=== PATIENT | female | born 1990 | race Caucasian/White ===

== ENCOUNTER → 2022-04-04 | Outpatient (CLI) | payer BC, SELFPAY ==
--- NOTE | 2022-04-04 14:28 | RAD_ITS ---
STUDY: X-RAY - PELVIS REASON FOR EXAM: Female, 32 years old. Pain. TECHNIQUE: One view of the pelvis was obtained. COMPARISON: None. FINDINGS: There is a non-specific bowel gas pattern. IUD. Normal bilateral iliac wings, sacroiliac joints and visualized sacrum. Normal visualized bilateral superior and inferior pubic rami. Normal pubic symphysis. Normal ischial tuberosities. Normal visualized right femoral head. Normal right acetabulum. Normal right hip joint. Normal visualized left femoral head. Normal left acetabulum. Normal left hip joint. RAD/Pelvis 1 or 2 Views IMPRESSION: No abnormality of the visualized pelvis. No acute finding, evidence of erosive changes or fusion. Electronically Signed: Peterson Harris, at 9:46 EDT ,
[2022-04-04 17:43] LABS: Absolute Lymphocyte Count 1.79 X10^3/uL (0.83-4.51); Basophil# 0.05 X10^3/uL; Basophil% 0.6 % (0-1); Eosinophils% 1.2 % (0-5); Hematocrit 39.3 % (37-47); Hemoglobin 12.9 g/dL (12.0-15.0); Lymphocyte # 1.79 X10^3/ul (0.83-4.51); Lymphocyte % 21.1 % (19-41); Mean Corp Hgb Conc 32.8 g/dL (32-36); Mean Corpuscular Volume 94.5 fL (81-99); Mean Platelet Vol. 11.8 fl (6.2-12.0); Monocyte# 0.59 X10^3/uL; Monocyte% 6.9 % (0-10); NRBC Flagged by Analyzer 0 % (0-5); Neutrophil # 5.95 X10^3/uL (2.7-7.7); Platelet Count 259 K/mm3 (150-450); RBC Distribution Width CV 12.9 % (11.6-14.6); RBC Distribution Width SD 44.6 fl (35.1-43.9); Red Blood Count 4.16 M/mm3 (4.2-5.4); White Blood Count 8.5 K/mm3 (4.4-11.0)
[2022-04-04 18:06] LABS: AST(SGOT) 19 U/L (15-37); Alanine Aminotransfer ALT/SGPT 24 U/L (13-56); Albumin, Serum 3.8 g/dL (3.2-5.0); Alkaline Phosphatase 64 U/L (45-117); Anion Gap 10 (5-15); BUN 9 mg/dL (7-18); BUN/Creat Ratio 10.2 RATIO (10-20); Calcium,Total 8.7 mg/dL (8.5-10.1); Chloride 106 mmol/L (98-107); Creatinine, Serum 0.88 mg/dL (0.55-1.02); EST Glomerular Filtration Rate 79 mL/min (>60); Est Glom Filt Rate - Afr Amer 95 mL/min (>60); Globulin 3.8 g/dL (2.2-4.2); Glucose 95 mg/dL (74-106); Potassium 3.6 mmol/L (3.5-5.1); Protein, Total 7.6 g/dL (6.4-8.2); Rheumatoid Factor < 10.0 IU/mL (<15); Sodium Level 140 mmol/L (136-145)
[2022-04-05 08:57] LABS: Hepatitis B Surface Antibody Non-Reactive; Hepatitis B Surface Antigen Non-Reactive (Nonreactive); Hepatitis C Antibody Non-Reactive (Nonreactive)
[2022-04-15 10:28] LABS: CCP IgG Antibodies 6 units (0-19); HLA B27 Negative (.)
== END | disposition home or self-care (01) ==
PROVIDERS: PCP Student in an Organized Health Care Education/Training Program; Referring Provider Internal Medicine Rheumatology; Visit Provider Internal Medicine Rheumatology
DX: M06.4 Inflammatory polyarthropathy (principal); M24.80 Other specific joint derangements of unspecified joint, not elsewhere classified; M25.559 Pain in unspecified hip
CPT/HCPCS: 36415; 72170; 80053; 81374; 85025; 86200; 86431; 86706; 86803; 87340

== ENCOUNTER → 2022-08-04 | Outpatient (CLI) | payer BC, SELFPAY ==
[2022-08-04 17:37] LABS: Absolute Lymphocyte Count 1.37 X10^3/uL (0.83-4.51); Basophil# 0.03 X10^3/uL; Basophil% 0.6 % (0-1); Eosinophil# 0.13 X10^3/uL; Eosinophils% 2.6 % (0-5); Hematocrit 39.4 % (37-47); Hemoglobin 13.5 g/dL (12.0-15.0); Lymphocyte # 1.37 X10^3/ul (0.83-4.51); Lymphocyte % 27.7 % (19-41); Mean Corp Hgb Conc 34.3 g/dL (32-36); Mean Corpuscular Hgb 31.6 pg (27.0-32.0); Mean Corpuscular Volume 92.3 fL (81-99); Mean Platelet Vol. 11.6 fl (6.2-12.0); Monocyte% 8.1 % (0-10); NRBC Flagged by Analyzer 0 % (0-5); Neutrophil % 60.8 % (47-70); Platelet Count 223 K/mm3 (150-450); RBC Distribution Width CV 13.4 % (11.6-14.6); RBC Distribution Width SD 45.4 fl (35.1-43.9); Red Blood Count 4.27 M/mm3 (4.2-5.4); White Blood Count 4.9 K/mm3 (4.4-11.0)
[2022-08-04 18:12] LABS: ALB/GLOB Ratio 1.1 RATIO (0.9-2.4); AST(SGOT) 13 U/L (15-37); Alanine Aminotransfer ALT/SGPT 16 U/L (13-56); Albumin, Serum 3.6 g/dL (3.2-5.0); Alkaline Phosphatase 43 U/L (45-117); Anion Gap 9 (5-15); BUN 10 mg/dL (7-18); BUN/Creat Ratio 11.9 RATIO (10-20); Calcium,Total 8.8 mg/dL (8.5-10.1); Chloride 109 mmol/L (98-107); Creatinine, Serum 0.84 mg/dL (0.55-1.02); EST Glomerular Filtration Rate 83 mL/min (>60); Est Glom Filt Rate - Afr Amer 100 mL/min (>60); Globulin 3.3 g/dL (2.2-4.2); Glucose 95 mg/dL (74-106); Potassium 3.9 mmol/L (3.5-5.1); Protein, Total 6.9 g/dL (6.4-8.2); Sodium Level 142 mmol/L (136-145)
== END | disposition home or self-care (01) ==
LOC: MTLAB 16:14
PROVIDERS: PCP Student in an Organized Health Care Education/Training Program; Referring Provider Internal Medicine Rheumatology; Visit Provider Internal Medicine Rheumatology
DX: M06.4 Inflammatory polyarthropathy (principal); Z79.899 Other long term (current) drug therapy
CPT/HCPCS: 36415; 80053; 85025

== ENCOUNTER → 2022-11-22 | Outpatient (CLI) | payer BC, SELFPAY ==
[2022-11-22 18:20] LABS: Absolute Lymphocyte Count 1.82 X10^3/uL (0.83-4.51); Basophil# 0.04 X10^3/uL; Basophil% 0.6 % (0-1); Eosinophil# 0.06 X10^3/uL; Eosinophils% 0.9 % (0-5); Hematocrit 39.7 % (37-47); Lymphocyte # 1.82 X10^3/ul (0.83-4.51); Lymphocyte % 28.3 % (19-41); Mean Corp Hgb Conc 32.7 g/dL (32-36); Mean Corpuscular Hgb 30.7 pg (27.0-32.0); Mean Corpuscular Volume 93.9 fL (81-99); Mean Platelet Vol. 11.6 fl (6.2-12.0); Monocyte# 0.45 X10^3/uL; NRBC Flagged by Analyzer 0 % (0-5); Neutrophil # 4.03 X10^3/uL (2.7-7.7); Neutrophil % 62.9 % (47-70); Platelet Count 303 K/mm3 (150-450); RBC Distribution Width CV 12.4 % (11.6-14.6); Red Blood Count 4.23 M/mm3 (4.2-5.4); White Blood Count 6.4 K/mm3 (4.4-11.0)
[2022-11-22 18:43] LABS: AST(SGOT) 12 U/L (15-37); Alanine Aminotransfer ALT/SGPT 27 U/L (13-56); Albumin, Serum 3.7 g/dL (3.2-5.0); Alkaline Phosphatase 55 U/L (45-117); Anion Gap 6 (5-15); BUN 10 mg/dL (7-18); BUN/Creat Ratio 11.6 RATIO (10-20); Chloride 107 mmol/L (98-107); Creatinine, Serum 0.86 mg/dL (0.55-1.02); EST Glomerular Filtration Rate 80 mL/min (>60); Est Glom Filt Rate - Afr Amer 97 mL/min (>60); Globulin 3.6 g/dL (2.2-4.2); Glucose 101 mg/dL (74-106); Potassium 3.7 mmol/L (3.5-5.1); Protein, Total 7.3 g/dL (6.4-8.2); Sodium Level 139 mmol/L (136-145)
[2022-11-27 14:08] LABS: Vitamin D 1,25-Dihydroxy 33.3 pg/mL (24.8-81.5)
== END | disposition home or self-care (01) ==
LOC: MTLAB 15:36
PROVIDERS: PCP Student in an Organized Health Care Education/Training Program; Referring Provider Internal Medicine Rheumatology; Visit Provider Internal Medicine Rheumatology
DX: M06.4 Inflammatory polyarthropathy (principal); Z79.899 Other long term (current) drug therapy; R53.83 Other fatigue
CPT/HCPCS: 36415; 80053; 82652; 85025

== ENCOUNTER → 2023-03-06 | Outpatient (CLI) | payer BC, SELFPAY ==
[2023-03-06 17:35] LABS: Absolute Lymphocyte Count 1.43 X10^3/uL (0.83-4.51); Absolute Neutrophil Count 2.7 X10^3/uL (2.0-7.7); Basophil# 0.03 X10^3/uL; Basophil% 0.6 % (0-1); Eosinophils% 2.1 % (0-5); Hematocrit 39.2 % (37-47); Lymphocyte # 1.43 X10^3/ul (0.83-4.51); Lymphocyte % 30.6 % (19-41); Mean Corp Hgb Conc 33.2 g/dL (32-36); Mean Corpuscular Hgb 31.3 pg (27.0-32.0); Mean Corpuscular Volume 94.5 fL (81-99); Mean Platelet Vol. 11.4 fl (6.2-12.0); Monocyte# 0.46 X10^3/uL; Monocyte% 9.8 % (0-10); NRBC Flagged by Analyzer 0 % (0-5); Neutrophil # 2.65 X10^3/uL (2.7-7.7); Neutrophil % 56.7 % (47-70); Platelet Count 233 K/mm3 (150-450); RBC Distribution Width CV 12.7 % (11.6-14.6); RBC Distribution Width SD 44.1 fl (35.1-43.9); Red Blood Count 4.15 M/mm3 (4.2-5.4); White Blood Count 4.7 K/mm3 (4.4-11.0)
[2023-03-06 17:45] LABS: ALB/GLOB Ratio 1.1 RATIO (0.9-2.4); AST(SGOT) 13 U/L (15-37); Alanine Aminotransfer ALT/SGPT 21 U/L (13-56); Albumin, Serum 3.6 g/dL (3.2-5.0); Alkaline Phosphatase 45 U/L (45-117); Anion Gap 5 (5-15); BUN 9 mg/dL (7-18); BUN/Creat Ratio 9.6 RATIO (10-20); Calcium,Total 8.5 mg/dL (8.5-10.1); Chloride 107 mmol/L (98-107); Creatinine, Serum 0.94 mg/dL (0.55-1.02); EST Glomerular Filtration Rate 73 mL/min (>60); Est Glom Filt Rate - Afr Amer 88 mL/min (>60); Globulin 3.2 g/dL (2.2-4.2); Glucose 97 mg/dL (74-106); Potassium 4.2 mmol/L (3.5-5.1); Protein, Total 6.8 g/dL (6.4-8.2); Sodium Level 139 mmol/L (136-145)
== END | disposition home or self-care (01) ==
LOC: MTLAB 15:10
PROVIDERS: PCP Student in an Organized Health Care Education/Training Program; Referring Provider Internal Medicine Rheumatology; Visit Provider Internal Medicine Rheumatology
DX: M06.4 Inflammatory polyarthropathy (principal); Z79.899 Other long term (current) drug therapy; Q79.62 Hypermobile Ehlers-Danlos syndrome
CPT/HCPCS: 36415; 80053; 85025

== ENCOUNTER → 2023-05-30 | Outpatient (CLI) | payer BC, SELFPAY ==
[2023-05-30 17:38] LABS: Absolute Lymphocyte Count 1.64 X10^3/uL (0.83-4.51); Absolute Neutrophil Count 3.9 X10^3/uL (2.0-7.7); Basophil# 0.04 X10^3/uL; Basophil% 0.7 % (0-1); Eosinophil# 0.06 X10^3/uL; Hematocrit 42.3 % (37-47); Hemoglobin 13.9 g/dL (12.0-15.0); Lymphocyte # 1.64 X10^3/ul (0.83-4.51); Lymphocyte % 26.9 % (19-41); Mean Corp Hgb Conc 32.9 g/dL (32-36); Mean Corpuscular Hgb 31.6 pg (27.0-32.0); Mean Corpuscular Volume 96.1 fL (81-99); Monocyte# 0.45 X10^3/uL; Monocyte% 7.4 % (0-10); NRBC Flagged by Analyzer 0 % (0-5); Neutrophil % 63.8 % (47-70); Platelet Count 277 K/mm3 (150-450); RBC Distribution Width CV 12.9 % (11.6-14.6); RBC Distribution Width SD 46.1 fl (35.1-43.9); White Blood Count 6.1 K/mm3 (4.4-11.0)
[2023-05-30 17:57] LABS: ALB/GLOB Ratio 1.1 RATIO (0.9-2.4); AST(SGOT) 15 U/L (15-37); Alanine Aminotransfer ALT/SGPT 20 U/L (13-56); Albumin, Serum 3.6 g/dL (3.2-5.0); Alkaline Phosphatase 57 U/L (45-117); Anion Gap 8 (5-15); BUN 7 mg/dL (7-18); BUN/Creat Ratio 6.5 RATIO (10-20); Calcium,Total 8.7 mg/dL (8.5-10.1); Chloride 104 mmol/L (98-107); Creatinine, Serum 1.08 mg/dL (0.55-1.02); EST Glomerular Filtration Rate 62 mL/min (>60); Est Glom Filt Rate - Afr Amer 75 mL/min (>60); Globulin 3.3 g/dL (2.2-4.2); Glucose 86 mg/dL (74-106); Potassium 3.9 mmol/L (3.5-5.1); Protein, Total 6.9 g/dL (6.4-8.2); Sodium Level 139 mmol/L (136-145)
== END | disposition home or self-care (01) ==
LOC: MTLAB 15:29
PROVIDERS: PCP Student in an Organized Health Care Education/Training Program; Referring Provider Internal Medicine Rheumatology; Visit Provider Internal Medicine Rheumatology
DX: M06.4 Inflammatory polyarthropathy (principal); Z79.899 Other long term (current) drug therapy
CPT/HCPCS: 36415; 80053; 85025

== ENCOUNTER → 2023-09-03 | Outpatient (CLI) | payer BC, SELFPAY ==
[2023-09-03 17:45] LABS: Absolute Lymphocyte Count 1.47 X10^3/uL (0.83-4.51); Absolute Neutrophil Count 2.6 X10^3/uL (2.0-7.7); Basophil# 0.05 X10^3/uL; Basophil% 1.1 % (0-1); Eosinophil# 0.19 X10^3/uL; Hematocrit 36.6 % (37-47); Hemoglobin 12.1 g/dL (12.0-15.0); Lymphocyte # 1.47 X10^3/ul (0.83-4.51); Lymphocyte % 31.1 % (19-41); Mean Corp Hgb Conc 33.1 g/dL (32-36); Mean Corpuscular Hgb 31.3 pg (27.0-32.0); Mean Corpuscular Volume 94.6 fL (81-99); Mean Platelet Vol. 11.5 fl (6.2-12.0); Monocyte# 0.46 X10^3/uL; Monocyte% 9.7 % (0-10); NRBC Flagged by Analyzer 0 % (0-5); Neutrophil # 2.55 X10^3/uL (2.7-7.7); Neutrophil % 53.9 % (47-70); Platelet Count 240 K/mm3 (150-450); RBC Distribution Width CV 12.5 % (11.6-14.6); RBC Distribution Width SD 43.3 fl (35.1-43.9); Red Blood Count 3.87 M/mm3 (4.2-5.4); White Blood Count 4.7 K/mm3 (4.4-11.0)
[2023-09-03 17:59] LABS: ALB/GLOB Ratio 1.2 RATIO (0.9-2.4); AST(SGOT) 22 U/L (15-37); Alanine Aminotransfer ALT/SGPT 23 U/L (13-56); Albumin, Serum 3.5 g/dL (3.2-5.0); Alkaline Phosphatase 50 U/L (45-117); Anion Gap 4 (5-15); BUN 7 mg/dL (7-18); BUN/Creat Ratio 7.3 RATIO (10-20); Calcium,Total 8.8 mg/dL (8.5-10.1); Chloride 110 mmol/L (98-107); Creatinine, Serum 0.96 mg/dL (0.55-1.02); EST Glomerular Filtration Rate 71 mL/min (>60); Est Glom Filt Rate - Afr Amer 86 mL/min (>60); Glucose 95 mg/dL (74-106); Potassium 4.2 mmol/L (3.5-5.1); Protein, Total 6.5 g/dL (6.4-8.2); Sodium Level 140 mmol/L (136-145)
--- OUTSIDE RECORDS SUMMARY | 2023-09-04 00:02 | XMS RPT_ITS | CCD ---
Author Name Unknown Address [address] [place] [address] Organization [facility] Care Team Providers Care Premix Operator Concentrate Name Role Phone UNKNOWN, PROVIDER Unavailable Unavailable Connell, Bony A Unavailable Unavailable Unavailable RADHA ENGLAND Referring Unavailable DAYRADHA Attending Unavailable CONNELL, BONY Primary Care Unavailable Melania Canada Unavailable Connell DO, Bony A Primary Care Provider NOLAN MENESES Attending Unavailable Connell DO, Bony Primary Care Provider [phone] Dr. Edd Mcmillan Attending Unavailab le CONNELL, DO BONY Primary Care Unavailable CONNELL, DO BONY Referring Unavailable CONNELL, DO BONY Primary Care Unavailable CONNELL, DO BONY Referring Unavailable CONNELL, DO BONY Attending Unavailable CONNELL, DO BONY Primary Care Unavailable CONNELL, DO BONY Referring Unavailable CONNELL, DO BONY Attending Unavailable CONNELL, DO BONY Referring Unavailable CONNELL, DO BONY Attending Unavailable CONNELL, DO BONY Primary Care Unavailable CONNELL, DO BONY Primary Care Unavailable Nicholson, Susheel Referring Unavailable Nicholson, Susheel Attending Unavailable CONNELL, DO BONY Primary Care Unavailable CONNELL, DO BONY Referring Unavailable THOMAE, DO HIEU R Attending Unavailable CONNELL, BONY Primary Care Unavailable TAMRA LOPEZ Attending Unavailable CONNELL, BONY Primary Care Unavailable DONATO GARY Attending Unavailable CONNELL, BONY Primary Care Unavailable DONATO GARY Attending Unavailable CONNELL, BONY Primary Care Unavailable CONNELL, BONY Referring Unavailable DAY, RADHA RODGERS Attending Unavailable CONNELL, BONY Admitting Unavailable CONNELL, BONY Primary Care Unavailable DAY, RADHA RODGERS Attending Unavailable PRCHYNAHOMENDOZAO, MIKEY ORTIZ Attending U navailable CONNELL, BONY Primary Care Unavailable Connell, Dr. Bony Casanova Primary Care Unavailab le Connell, Dr. Bony Casanova Attending Unavailab le Connell, Dr. Bony Casanova Primary Care Unavailab le Connell, Dr. Bony Casanova Attending Unavailab le Connell, Dr. Bony Casanova Primary Care Unavailab le Connell, Dr. Bony Casanova Attending Unavailab le Connell, Dr. Bony Casanova Primary Care Unavailab le Connell, Dr. Bony Casanova Attending Unavailab le Connell, Dr. Bony Casanova Primary Care Unavailab le Connell, Dr. Bony Casanoav Attending Unavailab le Connell, Dr. Bony Casanova Attending Unavailab le Connell, Dr. Bony Casanova Primary Care Unavailab le Connell, Dr. Bony Casanova Attending Unavailab le Connell, Dr. Bony Casanova Primary Care Unavailab le Connell, Dr. Bony Casanova Primary Care Unavailab le Connell, Dr. Bony Casanova Attending Unavailab le Connell, Dr. Bony Casanova Attending Unavailab le Connell, Dr. Bony Casanova Primary Care Unavailab le Connell, Dr. Bony Casanova Primary Care Unavailab le Connell, Dr. Bony Casanova Attending Unavailab le Connell, Dr. Bony Casanova Primary Care Unavailab le Connell, Dr. Bony Casanova Attending Unavailab le Connell, Dr. Bony Casanova Primary Care Unavailab le Connell, Dr. Bony Casanova Attending Unavailab le Connell, Dr. Bony Casanova Primary Care Unavailab le Connell, Dr. Bony Casanova Attending Unavailab le Connell, Dr. Bony Casanova Primary Care Unavailab le Connell, Dr. Bony Casanova Attending Unavailab le Connell, Dr. Bony Casanova Primary Care Unavailab le Connell, Dr. Bony Casanova Attending Unavailab le Connell, Dr. Bony Casanova Primary Care Unavailab le Connell, Dr. Bony Casanova Attending Unavailab le Connell, Dr. Bony Casanova Primary Care Unavailab le Connell, Dr. Bony Casanova Attending Unavailab le Connell, Dr. Bony Casanova Primary Care Unavailab le Connell, Dr. Bony Casanova Attending Unavailab le Connell, Dr. Bony Casanova Primary Care Unavailab le Connell, Dr. Bony Casanova Attending Unavailab le Connell, Dr. Bony Casanova Attending Unavailab le Conenll, Dr. Bony Casanova Primary Care Unavailab le Connell, Dr. Bony Casanova Attending Unavailab le Connell, Dr. Bony Casanova Primary Care Unavailab le Connell, Dr. Bony Casanova Primary Care Unavailab le Connell, Dr. Bony Casanova Attending Unavailab le Connell, Dr. Bony Casanova Primary Care Unavailab le Connell, Dr. Bony Casanova Attending Unavailab le Connell, Dr. Bony Casanova Primary Care Unavailab le Connell, Dr. Bony Casanova Attending Unavailab le Connell, Dr. Bony Casanova Primary Care Unavailab le Connell, Dr. Bony Casanova Attending Unavailab le Connell, Dr. Bony Casanova Primary Care Unavailab le Connell, Dr. Bony Casanova Attending Unavailab le Connell, Dr. Bony Casanova Primary Care Unavailab le Connell, Dr. Bony Casanova Attending Unavailab le Connell, Dr. Bony Casanova Attending Unavailab le Connell, Dr. Bony Casanova Primary Care Unavailab le Connell, Dr. Bony Casanova Attending Unavailab le Connell, Dr. Bony Casanova Primary Care Unavailab le Alexander, Sherine Attending Unavailable Connell, Dr. Bony Casanova Primary Care Unavailab le Connell, Dr. Bony Casanova Referring Unavailab le Kamenik, Ms. Danilo Zendejas Attending Unavai lable Connell, Dr. Bony Casanova Primary Care Unavailab le Connell, Dr. Bony Casanova Primary Care Unavailab le Connell, Dr. Bony Casanova Attending Unavailab le Connell, Dr. Bony Casanova Primary Care Unavailab le Connell, Dr. Bony Casanova Attending Unavailab le Connell, Dr. Bony Casanova Primary Care Unavailab le Thomae, Dr. Hieu Marina Admitting Unavailable Thomae, Dr. Hieu Marina Attending Unavailable Connell, Dr. Bony Casanova Referring Unavailab le Connell, Dr. Bony Casanova Primary Care Unavailab le Connell, Dr. Bony Casanova Attending Unavailab le Connell, Dr. Bony Casanova Primary Care Unavailab le Connell, Dr. Bony Casanova Attending Unavailab le Connell DO, Bony A Primary Care Provider Connell DO, Bony A Unavailable [phone] CONNELL, BONY A Primary Care Unavailable HERRERA MAYER Attending Unavailable CONNELL, BONY A Attending Unavailable CONNELL, BONY A Primary Care Unavailable CONNELL, BONY A Attending Unavailable CONNELL, BONY A Referring Unavailable CONNELL, BONY A Primary Care Unavailable CONNELL, BONY A Attending Unavailable CONNELL, BONY A Primary Care Unavailable CONNELL, BONY A Attending Unavailable CONNELL, BONY A Referring Unavailable CONNELL, BONY A Primary Care Unavailable CONNELL, BONY A Attending Unavailable CONNELL, BONY A Primary Care Unavailable CONNELL, BONY A Attending Unavailable CONNELL, BONY A Primary Care Unavailable CONNELL, BONY A Attending Unavailable CONNELL, BONY A Referring Unavailable CONNELL, BONY A Primary Care Unavailable Allergies Allergy Classification Reported Allergen(s) Allergy Type Date of Onset Reaction(s) Facility (6 sources) Propofol; Translations: [PROPOFOL] Drug Allergy 3 Shortness of breath [facility] Medications Current Medications Medication Drug Class(es) Dates Sig (Normalized) Sig (Original) 24 hr buPROPion hydrochloride 300 mg extended release oral tablet (5 sources) Aminoketone Start: 03-15-2023 End: 10-20-2023 take 1 tablet by mouth once daily in the morning buPROPion XL (Wellbutrin XL) 300 mg 24 hr tablet Indications: Other fatigue Take 1 tablet (300 mg) by mouth once daily in the morning. Do not crush, chew, or split. 90 tablet 1 04/23/2023 10/20/2023 Active Completed/Discontinued Medications Medication Drug Class(es) Dates Sig (Normalized) Sig (Original) acetaminophen 325 mg / HYDROcodone bitartrate 5 mg oral tablet (1 source) Opioid Agonist Start: 3 End: 3 HYDROcodone-acetamino phen ([place]) 5-325 mg per tablet 1 tablet cyclobenzaprine hydrochloride 5 mg oral tablet (7 sources) Muscle Relaxant Start: 2 End: 2 take 1 tablet by mouth three times daily as needed Cyclobenzaprine HCl - 5 MG Oral Tablet TAKE 1 TABLET 3 TIMES DAILY NEEDED. Quantity: 30 Refills: 0 Ordered: 28-Nov-2021 Bony Connell DO Start : 28-Nov-2021 End : 17-Feb-2022 Complete DULoxetine 30 mg delayed release oral capsule (1 source) Serotonin and Norepinephrine Reuptake Inhibitor Start: 3 End: 4 take 1 capsule by mouth once daily DULoxetine (Cymbalta) [address] capsule Indications: Depression, major, single episode, mild (CMS/HCC) Take 1 capsule (30 mg) by mouth once daily. Do not crush or chew. 30 capsule 3 05/24/2023 07/19/2023 Discontinued (Therapy completed) hydroxychloroquine sulfate 200 mg oral tablet (20 sources) Antimalarial, Antirheumatic Agent Start: 2 take 1 tablet by mouth twice daily hydrOXYchloroQUINE (PLAQUENIL) 200 mg tablet Take 200 mg by mouth twice daily. 0 06/02/2022 Active Problems Active Problems Problem Classification Problem Date Documented Da te Episodic/Chronic Abdominal pain (4 sources) Generalized abdominal pain; Translations: [Lower abdominal pain, unspecified] Onset: 11-23-2022 12-25-2022 Episodic Allergic reactions (3 sources) Allergic condition; Translations: [Allergy, unspecified, not elsewhere classified] Episodic Anxiety disorders (20 sources) Anxiety; Translations: [Anxiety state, unspecified] Onset: 08-15-2022 11-25-2022 Chronic Past or Other Problems Problem Classification Problem Date Documented Da te Episodic/Chronic Cardiac dysrhythmias (14 sources) Tachycardia; Translations: [Tachycardia, unspecified] Onset: 05-22-2022 Resolved: 03-18-2023 Episodic Coma; stupor; and brain damage (8 sources) Somnolence; Translations: [Daytime somnolence] Onset: 11-23-2022 Resolved: 03-18-2023 Episodic Conditions associated with dizziness or vertigo (20 sources) Postural dizziness; Translations: [Dizziness and giddiness] Onset: 05-22-2022 Resolved: 10-04-2022 Episodic Results Test Name Value Interpretation Reference Range Facil ity Vital Signs Date Time Vital Sign Value Performing Clinician Facility 07-19-2023 13:32-0500 Body height 160 cm Bony Connell DO Work Phone: [facility] 07-19-2023 13:32-0500 Body mass index (BMI) [Ratio] 31 kg/m2 Bony Connell DO Work Phone: [facility] 07-19-2023 13:32-0500 Body weight 79.38 kg Bony Connell DO Work Phone: [facility] 07-19-2023 13:32-0500 Diastolic blood pressure 74 mm[Hg] Bony Connell DO Work Phone: [facility] 07-19-2023 13:32-0500 Heart rate 88 /min Bony Connell DO Work Phone: [facility] 07-19-2023 13:32-0500 Systolic blood pressure 122 mm[Hg] Bony Connell DO Work Phone: [facility] 04-07-2023 17:40-0400 Diastolic blood pressure 87 mm[Hg] Herrera Mayer DO Work Phone: [facility] 04-07-2023 17:40-0400 Heart rate 77 /min Herrera Mayer DO Work Phone: [facility] 04-07-2023 17:40-0400 SaO2% (BldA) [Mass fraction] 98 % Herrera Mayer DO Work Phone: [facility] 04-07-2023 17:40-0400 Systolic blood pressure 130 mm[Hg] Herrera Mayer DO Work Phone: [facility] 04-07-2023 17:00-0400 Body height 160 cm Herrera Mayer DO Work Phone: [facility] 04-07-2023 17:00-0400 Body mass index (BMI) [Ratio] 29.23 kg/m2 Herrera Mayer DO Work Phone: [facility] 04-07-2023 17:00-0400 Body weight 74.84 kg Herrera Mayer DO Work Phone: [facility] 04-07-2023 17:00-0400 Respiratory rate 16 /min Herrera Mayer DO Work Phone: [facility] 04-07-2023 15:25-0400 Body temperature 99.1 [degF] Herrera Mayer DO Work Phone: [facility] 03-15-2023 14:55-0400 Body height 160 cm Bony Connell DO Work Phone: [facility] 03-15-2023 14:55-0400 Body mass index (BMI) [Ratio] 29.65 kg/m2 Bony Connell DO Work Phone: [facility] 03-15-2023 14:55-0400 Body weight 75.93 kg Bony Connell DO Work Phone: [facility] 03-15-2023 14:55-0400 Diastolic blood pressure 76 mm[Hg] Bony Connell DO Work Phone: [facility] 03-15-2023 14:55-0400 Heart rate 76 /min Bony Connell DO Work Phone: [facility] 03-15-2023 14:55-0400 Systolic blood pressure 112 mm[Hg] Bony Connell DO Work Phone: [facility] 12-19-2022 10:45-0400 Body height 159.8 cm Hieu Thomae DO Work Phone: [facility] 12-19-2022 10:45-0400 Body mass index (BMI) [Ratio] 29.37 kg/m2 Hieu Thomae DO Work Phone: [facility] 12-19-2022 10:45-0400 Body weight 75 kg Hieu Thomae DO Work Phone: [facility] 11-30-2022 15:09-0400 Body height 160.02 cm Bony A Connell Work Phone: [facility] [address] [place] Work Phone: 11-30-2022 15:09-0400 Body mass index (BMI) [Ratio] 29.49 kg/m2 Bony A Connell [facility] [address] [place] Work Phone: 11-30-2022 15:09-0400 Body surface area Derived from formula 1.79 m2 Bony A Connell Work Phone: [facility] [address] [place] Work Phone: 11-30-2022 15:09-0400 Body weight 75.52 kg Bony A Connell Work Phone: [facility] [address] [place] Work Phone: 11-06-2022 14:28-0400 Body height 160 cm Radha England MD Work Phone: [facility] 11-06-2022 14:28-0400 Body mass index (BMI) [Ratio] 29.58 kg/m2 Radha England MD Work Phone: [facility] 11-06-2022 14:28-0400 Body weight 75.75 kg Radha England MD Work Phone: [facility] 11-06-2022 14:28-0400 Diastolic blood pressure 85 mm[Hg] Radha England MD Work Phone: [facility] 11-06-2022 14:28-0400 Heart rate 95 /min Radha England MD Work Phone: [facility] 11-06-2022 14:28-0400 SaO2% (BldA) [Mass fraction] 98 % Radha England MD Work Phone: [facility] 11-06-2022 14:28-0400 Systolic blood pressure 127 mm[Hg] Radha England MD Work Phone: [facility] 07-20-2022 11:01-0500 Body height 160.02 cm Bony A Connell Work Phone: [facility] [address] Work Phone: 07-20-2022 11:01-0500 Body mass index (BMI) [Ratio] 30.35 kg/m2 Bony A Connell Work Phone: [facility]Ah[facility]apg[facility]Hbzl[facility] [address] Work Phone: 07-20-2022 11:01-0500 Body surface area Derived from formula 1.81 m2 Bony A Connell Work Phone: XO-Bafonzbm-Gmhldqy e [address] Work Phone: 07-20-2022 11:01-0500 Body temperature 97.6 [degF] Bony A Connell Work Phone: ZZ[facility]Jfusqjzq-Xgvcflv [facility] [address] Work Phone: 07-20-2022 11:01-0500 Body weight 77.71 kg Bony A Connell Work Phone: [facility]Ofyogktz-Oycmpqs [facility] [address] Work Phone: 07-20-2022 11:01-0500 Diastolic blood pressure 86 mm[Hg] Bony A Connell Work Phone: HV-Dnlgbkub-Pkrdzii [facility] [address] Work Phone: 07-20-2022 11:01-0500 Heart rate 87 /min Bony A Connell Work Phone: JA-Eyqtfico-Mpyfref [facility] [address] Work Phone: 07-20-2022 11:01-0500 Respiratory rate 16 /min Bony A Connell Work Phone: ZX-Xrfgqrxa-Wtbeubc e [address] Work Phone: 07-20-2022 11:01-0500 Systolic blood pressure 128 mm[Hg] Bony A Connell Work Phone: JW-Pxxawfti-Vppegpy e [address] Work Phone: 06-26-2022 15:02-0500 Body height 158.75 cm Bony A Connell Work Phone: [facility] [address] [place] Work Phone: 06-26-2022 15:02-0500 Body mass index (BMI) [Ratio] 30.82 kg/m2 Bony A Connell Work Phone: [facility] [address] [place] Work Phone: 06-26-2022 15:02-0500 Body surface area Derived from formula 1.8 m2 Bony A Connell Work Phone: [facility] [address] [place] Work Phone: 06-26-2022 15:02-0500 Body weight 77.68 kg Bony A Connell Work Phone: [facility] [address] [place] Work Phone: 06-26-2022 15:02-0500 Diastolic blood pressure 78 mm[Hg] Bony A Connell Work Phone: [facility] [address] [place] Work Phone: 06-26-2022 15:02-0500 Heart rate 84 /min Bony A Connell Work Phone: [facility] [address] [place] Work Phone: 06-26-2022 15:02-0500 Systolic blood pressure 126 mm[Hg] Bony A Connell Work Phone: [facility] [address] [place] Work Phone: 06-07-2022 12:26-0500 Body height 160 cm Nolan Meneses MD Work Phone: [facility] 06-07-2022 12:26-0500 Body weight 75.75 kg Nolan Meneses MD Work Phone: [facility] 06-07-2022 12:26-0500 Diastolic blood pressure 72 mm[Hg] Nolan Meneses MD Work Phone: [facility] 06-07-2022 12:26-0500 Heart rate 75 /min Nolan Meneses MD Work Phone: [facility] 06-07-2022 12:26-0500 SaO2% (BldA) [Mass fraction] 99 % Nolan Meneses MD Work Phone: [facility] 06-07-2022 12:26-0500 Systolic blood pressure 133 mm[Hg] Nolan Meneses MD Work Phone: [facility] 02-17-2022 10:44-0400 Body height 158.75 cm Bony A Connell Work Phone: [facility] [address] DO Work Phone: 02-17-2022 10:44-0400 Body mass index (BMI) [Ratio] 30.87 kg/m2 Bony A Connell Work Phone: [facility] [address] DO Work Phone: 02-17-2022 10:44-0400 Body surface area Derived from formula 1.8 m2 Bony A Connell Work Phone: [facility] [address] DO Work Phone: 02-17-2022 10:44-0400 Body weight 77.79 kg Bony A Connell Work Phone: [facility] [address] DO Work Phone: 02-17-2022 10:44-0400 Diastolic blood pressure 54 mm[Hg] Bony A Connell Work Phone: [facility] [address] DO Work Phone: 02-17-2022 10:44-0400 Heart rate 92 /min Bony A Connell Work Phone: [facility] [address] DO Work Phone: 02-17-2022 10:44-0400 Systolic blood pressure 100 mm[Hg] Bony A Connell Work Phone: [facility] [address] DO Work Phone: 12-26-2021 14:37-0400 Body height 158.75 cm Bony A Connell Work Phone: [facility] [address] DO Work Phone: 12-26-2021 14:37-0400 Diastolic blood pressure 72 mm[Hg] Bony A Connell Work Phone: [facility] [address] DO Work Phone: 12-26-2021 14:37-0400 Heart rate 88 /min Bony A Connell Work Phone: [facility] [address] DO Work Phone: 12-26-2021 14:37-0400 Systolic blood pressure 130 mm[Hg] Bony A Connell Work Phone: [facility] [address] DO Work Phone: 11-28-2021 16:09-0400 Body height 158.75 cm Bony A Connell Work Phone: [facility] [address] [place] Work Phone: 11-28-2021 16:09-0400 Body mass index (BMI) [Ratio] 31.59 kg/m2 Bony A Connell Work Phone: [facility] [address] [place] Work Phone: 11-28-2021 16:09-0400 Body surface area Derived from formula 1.82 m2 Bony A Connell Work Phone: [facility] [address] [place] Work Phone: 11-28-2021 16:09-0400 Body weight 79.61 kg Bony A Connell Work Phone: [facility] [address] [place] Work Phone: 11-28-2021 16:09-0400 Diastolic blood pressure 74 mm[Hg] Bony A Connell Work Phone: [facility] [address] [place] Work Phone: 11-28-2021 16:09-0400 Heart rate 84 /min Bony A Connell Work Phone: [facility] [address] [place] Work Phone: 11-28-2021 16:09-0400 Systolic blood pressure 128 mm[Hg] Bony A Connell Work Phone: [facility] [address] DO Work Phone: Encounters Encounter Date Encounter Type Care Provider Facility Start: 08-21-2023 End: 08-21-2023 ambulatory [facility] Start: 07-19-2023 End: 07-19-2023 ambulatory [facility] Start: 07-19-2023 End: 07-19-2023 Encounter for general adult medical examination without abnormal findings [facility] Start: 07-19-2023 End: 07-19-2023 Office outpatient visit 15 minutes Bony Connell DO Work Phone: [facility] Procedures Date Procedure Procedure Detail Performing Clinician Start: 07-19-2023 Drug screening canna binoids natural Bony Connell DO Work Phone: Start: 07-19-2023 Drugs of abuse scree n W Reflex confirm panel - Urine Bony Connell DO Work Phone: Start: 04-17-2023 FLU VACCINE (IIV4) G REATER THAN OR EQUAL TO 3YO PRESERVATIVE FREE BONY CONNELL Start: 04-17-2023 FOLLOW UP IN [facility] BONY HALE Start: 04-07-2023 XR SHOULDER LEFT 2+ VIEWS BONY CONNELL Start: 04-07-2023 XR RIBS 2 VIEWS LEFT WITH CHEST ANTEROPOSTERIOR BONY CONNELL Start: 04-07-2023 ECG 12-LEAD BONY H TALIA Start: 04-07-2023 End: 04-07-2023 Radex ribs uni w/posteroant ch minimum 3 views Herrera Mayer DO Work Phone: Start: 03-15-2023 FOLLOW UP IN [facility] BONY CONNELL Start: 12-20-2022 Colonoscopy stoma dx including collj spec spx Bony Connell DO Work Phone: Start: 12-20-2022 Colonoscopy Bony Connell Work Phone: Start: 12-14-2022 FOLLOW UP IN [facility] BONY HALE Start: 11-06-2022 Follow-up visit Follow-up RADHA ENGLAND Start: 11-29-2021 Lipid 1996 panel - S elias or Plasma Bony Connell DO Work Phone: No history of surgery Sebastian Connell Work Phone: Plan of Treatment Date Care Activity Detail Author Start: 2039 Zoster Vaccines (1 of 2) Zoster Vaccines (1 of 2) [facility] Start: 11-29-2026 Lipid panel Lipid Panel [facility] Start: 08-21-2023 End: 08-21-2023 Patient encounter procedure 08/21/2023 4:20 PM EST Office Visit [facility] [address] [facility] [address] [place] [address] Bony Connell DO [address] [facility] [address] [place] [address] [facility] Start: 08-04-2023 Diabetes mellitus screening Diabetes Screening [facility] Start: 04-17-2023 End: 04-17-2023 Patient encounter procedure 04/17/2023 4:00 PM EDT Office Visit [facility] [address] [facility] [address] [place] [address] Bony Connell DO [address] [facility] [address] [place] [address] [facility] Start: 04-16-2023 PTFUADULT4, Provider: Flori Rouse, Status: Pen, Time: 2:00 PM PTFUADULT4, Provider: Flori Rouse, Status: Pen, Time: 2:00 PM [facility] [place] [address] [place] Work Phone: Start: 04-02-2023 PTFUADULT4, Provider: Flori Rouse, Status: Pen, Time: 2:00 PM PTFUADULT4, Provider: Flori Rouse, Status: Pen, Time: 2:00 PM [facility] [address] [place] Work Phone: Start: 03-19-2023 PTFUADULT4, Provider: Flori Rouse, Status: Pen, Time: 2:00 PM PTFUADULT4, Provider: Flori Rouse, Status: Pen, Time: 2:00 PM [facility] [address] [place] Work Phone: Start: 03-09-2023 Influenza vaccination [facility] Start: 02-26-2023 PTFUADULT4, Provider: Flori Rouse, Status: Pen, Time: 2:00 PM PTFUADULT4, Provider: Flori Rouse, Status: Pen, Time: 2:00 PM [facility] [address] [place] Work Phone: Start: 02-12-2023 PTFUADULT4, Provider: Flori Rouse, Status: Pen, Time: 2:00 PM PTFUADULT4, Provider: Flori Rouse, Status: Pen, Time: 2:00 PM [facility] [place] [address] [place] Work Phone: Start: 01-29-2023 PTFUADULT4, Provider: Flori Rouse, Status: Pen, Time: 2:00 PM PTFUADULT4, Provider: Flori Rouse, Status: Pen, Time: 2:00 PM [facility] [place] [address] [place] Work Phone: Start: 01-11-2023 PTRECHECKA, Provider: Violeta Perry, Status: Pen, Time: 4:00 PM PTRECHECKBart, Provider: Violeta Perry, Status: Pen, Time: 4:00 PM [facility] Work Phone: Start: 01-10-2023 PTFUADULT4, Provider: Flori Rouse, Status: Pen, Time: 3:30 PM PTFUADULT4, Provider: Flori Rouse, Status: Pen, Time: 3:30 PM [facility] [address] [place] Work Phone: Start: 01-03-2023 PTFUADULT4, Provider: Flori Rouse, Status: Pen, Time: 3:30 PM PTFUADULT4, Provider: Flori Rouse, Status: Pen, Time: 3:30 PM [facility] [place] [address] [place] Work Phone: Start: 01-01-2023 PTFUADULT4, Provider: Flori Rouse, Status: Pen, Time: 2:00 PM PTFUADULT4, Provider: Flori Rouse, Status: Pen, Time: 2:00 PM [facility] Work Phone: Start: 12-27-2022 PTFUADULT4, Provider: Flori Rouse, Status: Pen, Time: 5:00 PM PTFUADULT4, Provider: Flori Rouse, Status: Pen, Time: 5:00 PM [facility] [address] [place] Work Phone: Start: 12-25-2022 PTFUADULT4, Provider: Flori Rouse, Status: Pen, Time: 2:45 PM PTFUADULT4, Provider: Flori Rouse, Status: Pen, Time: 2:45 PM [facility] Work Phone: Start: 12-20-2022 PTFUADULT4, Provider: Flori Rouse, Status: Pen, Time: 5:00 PM PTFUADULT4, Provider: Flori Rouse, Status: Pen, Time: 5:00 PM [facility] [place] [address] [place] Work Phone: Start: 12-20-2022 COLON, Provider: Hieu Moreno, Status: Pen, Time: 11:00 AM COLON, Provider: Hieu Moreno, Status: Pen, Time: 11:00 AM [facility] [place] [address] [place] Work Phone: Start: 12-18-2022 PTFUADULT4, Provider: Flori Rouse, Status: Pen, Time: 2:00 PM PTFUADULT4, Provider: Flori Rouse, Status: Pen, Time: 2:00 PM [facility] Work Phone: Start: 12-13-2022 PTFUADULT4, Provider: Flori Rouse, Status: Pen, Time: 2:45 PM PTFUADULT4, Provider: Flori Rouse, Status: Pen, Time: 2:45 PM [facility] [place] Work Phone: Start: 12-11-2022 PTFUADULT4, Provider: Flori Rouse, Status: Pen, Time: 3:30 PM PTFUADULT4, Provider: Flori Rouse, Status: Pen, Time: 3:30 PM [facility]: Start: 12-06-2022 PTFUADULT4, Provider: Flori Rouse, Status: Pen, Time: 2:45 PM PTFUADULT4, Provider: Flori Rouse, Status: Pen, Time: 2:45 PM [facility] Work [facility]: Start: 11-30-2022 NPV, Provider: Hieu Moreno, Status: Pen, Time: 3:15 PM NPV, Provider: Hieu Moreno, Status: Pen, Time: 3:15 PM [facility]: Start: 11-29-2022 PTFUADULT4, Provider: Flori Rouse, Status: Pen, Time: 3:30 PM PTFUADULT4, Provider: Flori Rouse, Status: Pen, Time: 3:30 PM [facility] Work [facility]: Start: 11-27-2022 PTFUADULT4, Provider: Flori Rouse, Status: Pen, Time: 12:15 PM PTFUADULT4, Provider: Flori Rouse, Status: Pen, Time: 12:15 PM [facility] Work [facility]: Start: 11-22-2022 PTFUADULT4, Provider: Flori Rouse, Status: Pen, Time: 1:30 PM PTFUADULT4, Provider: Flori Rouse, Status: Pen, Time: 1:30 PM [facility] Work [facility]: Start: 11-20-2022 PTFUADULT3, Provider: Flori Rouse, Status: Pen, Time: 1:30 PM PTFUADULT3, Provider: Flori Rouse, Status: Pen, Time: 1:30 PM [facility] Work [facility]: Start: 11-16-2022 PTRECHECKA, Provider: Violeta Perry, Status: Pen, Time: 3:15 PM PTRECHECKA, Provider: Violeta Perry, Status: Pen, Time: 3:15 PM [facility] Work [facility]: Start: 11-13-2022 PTFUADULT4, Provider: Flori Rouse, Status: Pen, Time: 5:00 PM PTFUADULT4, Provider: Flori Rouse, Status: Pen, Time: 5:00 PM [facility] Work [facility]: Start: 11-13-2022 PTFUADULT4, Provider: Flori Rouse, Status: Pen, Time: 4:15 PM PTFUADULT4, Provider: Flori Rouse, Status: Pen, Time: 4:15 PM [facility] [address] [place] Work Phone: Start: 11-13-2022 PTFUADULT4, Provider: Violeta Perry, Status: Pen, Time: 1:45 PM PTFUADULT4, Provider: Violeta Perry, Status: Pen, Time: 1:45 PM [facility] [address] [place] Work Phone: Start: 11-08-2022 PTFUADULT4, Provider: Flori Rouse, Status: Pen, Time: 5:15 PM PTFUADULT4, Provider: Flori Rouse, Status: Pen, Time: 5:15 PM [facility] Work [facility]: Start: 11-06-2022 PTFUADULT4, Provider: Flori Rouse, Status: Pen, Time: 5:00 PM PTFUADULT4, Provider: Flori Rouse, Status: Pen, Time: 5:00 PM Rehab [facility] Work Phone: Start: 11-03-2022 PTFUADULT4, Provider: Flori Rouse, Status: Pen, Time: 2:45 PM PTFUADULT4, Provider: Flori Rouse, Status: Pen, Time: 2:45 PM [facility] Work Phone: Start: 11-01-2022 PTFUADULT4, Provider: Flori Rouse, Status: Pen, Time: 4:15 PM PTFUADULT4, Provider: Flori Rouse, Status: Pen, Time: 4:15 PM Rehab [facility] Work Phone: Start: 10-30-2022 PTFUADULT4, Provider: Flori Rouse, Status: Pen, Time: 4:15 PM PTFUADULT4, Provider: Flori Rouse, Status: Pen, Time: 4:15 PM [facility] Work Phone: Start: 10-27-2022 PTFUADULT4, Provider: Flori Rouse, Status: Pen, Time: 2:45 PM PTFUADULT4, Provider: Flori Rouse, Status: Pen, Time: 2:45 PM [facility] Work Phone: Start: 10-25-2022 PTFUADULT4, Provider: Flori Rouse, Status: Pen, Time: 3:30 PM PTFUADULT4, Provider: Flori Rouse, Status: Pen, Time: 3:30 PM [facility] Work [facility]: Start: 10-23-2022 PTFUADULT4, Provider: Flori Rouse, Status: Pen, Time: 2:45 PM PTFUADULT4, Provider: Flori Rouse, Status: Pen, Time: 2:45 PM [facility] Work [facility]: Start: 10-20-2022 PTFUADULT4, Provider: Tracy Lindo, Status: Pen, Time: 2:00 PM PTFUADULT4, Provider: Tracy Lindo, Status: Pen, Time: 2:00 PM [facility] Work [facility]: Start: 10-19-2022 PTFUADULT3, Provider: Violeta Perry, Status: Pen, Time: 3:30 PM PTFUADULT3, Provider: Violeta Perry, Status: Pen, Time: 3:30 PM [facility] [place] Work Phone: Start: 10-18-2022 PTFUADULT4, Provider: Flori Rouse, Status: Pen, Time: 2:00 PM PTFUADULT4, Provider: Flori Rouse, Status: Pen, Time: 2:00 PM Rehab [facility] Work Phone: Start: 10-16-2022 PTFUADULT4, Provider: Flori Rouse, Status: Pen, Time: 2:45 PM PTFUADULT4, Provider: Flori Rouse, Status: Pen, Time: 2:45 PM [facility] Work [facility]: Start: 10-13-2022 PTFUADULT4, Provider: Flori Rouse, Status: Pen, Time: 2:00 PM PTFUADULT4, Provider: Flori Rouse, Status: Pen, Time: 2:00 PM [facility] Work [facility]: Start: 10-11-2022 PTFUADULT4, Provider: Flori Rouse, Status: Pen, Time: 4:15 PM PTFUADULT4, Provider: Flori Rouse, Status: Pen, Time: 4:15 PM [facility] Work [facility]: Start: 10-09-2022 PTFUADULT4, Provider: Flori Rouse, Status: Pen, Time: 2:00 PM PTFUADULT4, Provider: Flori Rouse, Status: Pen, Time: 2:00 PM [facility] Work [facility]: Start: 09-25-2022 FUV, Provider: Bony Connell, Status: Pen, Time: 4:20 PM FUV, Provider: Bony Connell, Status: Pen, Time: 4:20 PM [facility] [address] DO Work Phone: Start: 06-26-2022 FUV, Provider: Bony Connell, Status: Pen, Time: 3:00 PM FUV, Provider: Bony Connell, Status: Pen, Time: 3:00 PM [facility] 205 DO Work Phone: Start: 03-09-2022 Influenza vaccination INFLUENZA (#1) [facility] Start: 12-26-2021 FUV, Provider: Bony Connell, Status: Pen, Time: 2:40 PM FUV, Provider: Bony Connell, Status: Pen, Time: 2:40 PM [facility] [address] DO Work Phone: Start: 07-09-2021 DEPRESSION ASSESSMENT DEPRESSION ASSESSMENT [facility] Start: 04-22-2021 COVID-19 Vaccine (3 - Booster for Moderna series) COVID-19 Vaccine (3 - Booster for Moderna series) [facility] Start: 04-22-2021 COVID-19 Vaccine (3 - Moderna series) COVID-19 Vaccine (3 - Moderna series) [facility] Start: 2019 HPV TESTING HPV TESTING [facility] Start: 2011 DTaP/Tdap/Td Vaccines (1 - Tdap) DTaP/Tdap/Td Vaccines (1 - Tdap) [facility] Start: 2010 PAP TESTING PAP TESTING [facility] Start: 2010 Screening for malignant neoplasm of cervix [facility] Start: 02-09-2008 Hepatitis A Vaccines (1 of 2 - Risk 2-dose series) Hepatitis A Vaccines (1 of 2 - Risk 2-dose series) [facility] Start: 02-09-2008 SHINGRIX VACCINE (1 of 2) SHINGRIX VACCINE (1 of 2) [facility] Start: 02-09-2008 Urine microalbumin profile DTAP,TDAP,TD (1 - Tdap) [facility] Start: 2007 HEPATITIS C SCREENING HEPATITIS C SCREENING [facility] Start: 2007 Hepatitis C screening Hepatitis C Screening [facility] Start: 2007 HIV SCREENING HIV SCREENING [facility] Start: 02-09-2004 HIV screening HIV Screening [facility] Start: 2001 Depression screening using PHQ-9 (Patient Health Questionnaire 9) score Depression Screening (PHQ-2/9) [facility] Start: 1995 PNEUMOCOCCAL (1 - PCV) PNEUMOCOCCAL (1 - PCV) [facility] Start: 02-09-1992 History and physical examination, annual for health maintenance Wellness Visit [facility] Start: 1990 MMR Vaccines (1 of 1 - Standard series) MMR Vaccines (1 of 1 - Standard series) [facility] Start: 1990 Varicella vaccination Varicella Vaccines (1 of 2 - 2-dose childhood series) [facility] Start: 1989 COVID-19 VACCINE (#1) COVID-19 VACCINE (#1) [facility] Start: 1989 HEPATITIS B (1 of 3 - 3-dose series) HEPATITIS B (1 of 3 - 3-dose series) [facility] Start: 1989 Hepatitis B Vaccines (1 of 3 - 3-dose series) Hepatitis B Vaccines (1 of 3 - 3-dose series) [facility] Start: 1989 HIV screening HIV Screening [facility] Start: 1989 Screening for malignant neoplasm of cervix Pap Smear [facility] Start: 1989 Tetanus vaccination Tetanus: Every 10yrs [facility] Start: 1989 Yearly Adult Physical Yearly Adult Physical [facility] End: 04-07-2023 ECG 12 lead ECG 12 lead ECG STAT Once for 1 Occurrences starting 04/07/2023 until 04/07/2023 [facility] Service Area Work Phone: Immunizations Immunization Date Immunization Notes Care Provider Tam rose 04-17-2023 influenza, injectabl e, quadrivalent, preservative free Bony Connell DO Work Phone: [facility] Work Phone: Payers Date Payer Category Payer Unknown 2021 Unknown [id number] 2017 Unknown [id number] 1989 Unknown [id number] 2.16. 840.1.178381.3.579.2.903 1989 Unknown [id number] 2.16. 840.1.640450.3.579.2.356 1989 Unknown [id number] 2.16. 840.1.621352.3.579.2.356 1989 Unknown [id number] 2.16. 840.1.468386.3.579.2.356 1989 Unknown [id number] 2.16. 840.1.572531.3.579.2.356 1989 Unknown [id number] 2.16. 840.1.751706.3.579.2.356 1989 Unknown [id number] 2.16. 840.1.665504.3.579.2.356 1989 Unknown [id number] 2.16. 840.1.778841.3.579.2.902 1989 Unknown [id number] 2.16. 840.1.345765.3.579.2.903 1989 Unknown [id number] 2.16. 840.1.901642.3.579.2.903 1989 Unknown [id number] 2.16. 840.1.741548.3.579.2.903 1989 Unknown [id number] 2.16. 840.1.837657.3.579.2.903 1989 Unknown [id number] 2.16. 840.1.201443.3.579.2.903 1989 Unknown [id number] 2.16.8 40.1.485537.3.579.2.1069 1989 Unknown [id number] 2.16.8 40.1.493804.3.579.2.1068 1989 Unknown [id number] 2.16.8 40.1.163084.3.579.2.1068 1989 Unknown [id number] 2.16.8 40.1.403459.3.579.2.1068 1989 Unknown [id number] 2.16.8 40.1.297125.3.579.2.1068 1989 Unknown [id number] 2.16.8 40.1.490232.3.579.2.1068 1989 Unknown [id number] 2.16.8 40.1.654571.3.579.2.1068 1989 Unknown [id number] 2.16.8 40.1.901432.3.579.2.1068 1989 Unknown [id number] 2.16.8 40.1.422998.3.579.2.1068 1989 Unknown [id number] 2.16.8 40.1.294921.3.579.2.1068 1989 Unknown [id number] 2.16.8 40.1.854752.3.579.2.1068 1989 Unknown [id number] 2.16.8 40.1.388261.3.579.2.1068 1989 Unknown [id number] 2.16.8 40.1.793864.3.579.2.1068 1989 Unknown [id number] 2.16.8 40.1.154490.3.579.2.1068 1989 Unknown [id number] 2.16.8 40.1.570161.3.579.2.1068 1989 Unknown [id number] 2.16.8 40.1.638822.3.579.2.1068 1989 Unknown [id number] 2.16.8 40.1.703634.3.579.2.1068 1989 Unknown [id number] 2.16.8 40.1.035260.3.579.2.1068 1989 Unknown [id number] 2.16.8 40.1.194719.3.579.2.1068 1989 Unknown [id number] 2.16.8 40.1.508251.3.579.2.1068 1989 Unknown [id number] 2.16.8 40.1.080060.3.579.2.1068 1989 Unknown [id number] 2.16.8 40.1.031867.3.579.2.1068 1989 Unknown [id number] 2.16.8 40.1.016738.3.579.2.1068 1989 Unknown [id number] 2.16.8 40.1.841989.3.579.2.1068 1989 Unknown [id number] 2.16.8 40.1.656321.3.579.2.1068 1989 Unknown [id number] 2.16.8 40.1.299589.3.579.2.1068 1989 Unknown [id number] 2.16.8 40.1.729279.3.579.2.1068 1989 Unknown [id number] 2.16.8 40.1.301597.3.579.2.1068 1989 Unknown [id number] 2.16.8 40.1.464142.3.579.2.1068 1989 Unknown [id number] 2.16.8 40.1.630532.3.579.2.1068 1989 Unknown [id number] 2.16.8 40.1.032652.3.579.2.1068 1989 Unknown [id number] 2.16.8 40.1.441954.3.579.2.1068 1989 Unknown [id number] 2.16.8 40.1.213719.3.579.2.1068 1989 Unknown [id number] 2.16.8 40.1.480343.3.579.2.9 1989 Unknown [id number] 2.16.8 40.1.803071.3.579.2.9 1989 Unknown [id number] 2.16.8 40.1.346190.3.579.2.9 1989 Unknown [id number] 2.16.84 0.1.432002.3.579.2.3 1989 Unknown [id number] 2.16.8 40.1.818283.3.579.2.1243 1989 Unknown [id number] 2.16.8 40.1.167302.3.579.2.4 1989 Unknown [id number] 2.16.8 40.1.066842.3.579.2.1243 1989 Unknown [id number] 2.16.8 40.1.023494.3.579.2.4 1989 Unknown [id number] 2.16.84 0.1.525138.3.579.2.4 1989 Unknown [id number] 2.16.84 0.1.259938.3.579.2.4 1989 Unknown [id number] 2.16.84 0.1.382700.3.579.2.1244 Social History Date Type Detail Facility Start: 06-07-2022 End: 07-19-2023 Former smoker Former smoker [facility] 205 DO Work Phone: Start: 06-07-2022 End: 09-25-2022 Tobacco smoking status NHIS Ex-smoker [facility] End: 05-25-2021 History of tobacco use Current smoker [facility] End: 05-25-2021 History of tobacco use Cigarette Smoker [facility] Start: 06-07-2022 End: 09-25-2022 Tobacco use and exposure Smokeless tobacco non-user [facility] Start: 06-07-2022 End: 11-06-2022 Alcohol intake Current drinker of alcohol (finding) [facility] Start: 1990 Sex Assigned At Not on file [facility] Start: 05-28-2022 End: 07-19-2023 Exposure to SARS-CoV-2 (event) Not sure [facility] Start: 05-22-2022 [facility] Start: 05-22-2022 End: 07-19-2023 Tobacco use panel [facility] Clinical Notes 12-26-2021 to 07-30-2023 Assessment & Plan Note - Bony Connell DO - 07/30/2023 12:37 AM ESTAssessment & Plan Note - Bony Connell DO - 07/30/2023 12:37 AM Jay Connell DO - 07/19/2023 1:40 PM EST Note Date & Type Note Facility 07-30-2023 Evaluation + Plan note Associated Problem(s): Attention deficit hyperactivity disorder (ADHD), predominantly inattentive type Significantly impacting her home and work life. Reviewed diagnosis and tx options. Using shared decision making, we decided to trial low dose stimulant given underlying chronic medical conditions. UDS/CSA today. Follow up in 1mo for recheck, sooner if needed. Return precautions reviewed. [facility] Work Phone: 07-30-2023 Miscellaneous Notes Associated Problem(s): Attention deficit hyperactivity disorder (ADHD), predominantly inattentive type Significantly impacting her home and work life. Reviewed diagnosis and tx options. Using shared decision making, we decided to trial low dose stimulant given underlying chronic medical conditions. UDS/CSA today. Follow up in 1mo for recheck, sooner if needed. Return precautions reviewed. documented in this encounter [facility] Work Phone: 07-19-2023 History of Present illness Narrative Subjective Patient ID: Estrellita Sapp is a 33 y.o. female who presents for discuss medications HPI Anx/dep - unable to tolerate Cymbalta and had significant withdrawal symptoms after weaning/stopping, states that most concerning symptom at this time is difficulty with focus/concentration, impacting function at home and with work, had similar difficulty in school years, struggles with task completion, organization, following through, has functioned at work and home by making lists and messaging herself Inattention: -Fails to give close attention to details or makes careless mistakes in schoolwork, at work, or during other activities (eg, overlooks or misses details, work is inaccurate) yes -Has difficulty sustaining attention in tasks or play activities (eg, has difficulty remaining focused during lectures, conversations, or lengthy reading) yes -Does not seem to listen when spoken to directly (eg, mind seems elsewhere, even in the absence of any obvious distraction) yes -Does not follow through on instructions and fails to finish schoolwork, chores, or duties in the workplace (eg, starts tasks but quickly loses focus and is easily sidetracked) yes -Has difficulty organizing tasks and activities (eg, difficulty managing sequential tasks; difficulty keeping materials and belongings in order; messy, disorganized work; has poor time management; fails to meet deadlines) yes -Avoids, dislikes, or is reluctant to engage in tasks that require sustained mental effort (eg, schoolwork or homework; for older adolescents and adults, preparing reports, completing forms, reviewing lengthy papers) yes -Loses things necessary for tasks or activities (eg, school materials, pencils, books, tools, wallets, keys, paperwork, eyeglasses, mobile telephones) yes -Is easily distracted by extraneous stimuli (for older adolescents and adults, may include unrelated thoughts) yes -Is forgetful in daily activities (eg, doing chores, running errands; for older adolescents and adults, returning calls, paying bills, keeping appointments) yes, makes lists Hyperactivity and impulsivity -Often fidgets with or taps hands or feet or squirms in seat yes -Often leaves seat in situations when remaining seated is expected (eg, leaves his or her place in the classroom, in the office or other workplace, or in other situations that require remaining in place) no -Often runs about or climbs in situations where it is inappropriate. (Note: In adolescents or adults, may be limited to feeling restless.) no -Often unable to play or engage in leisure activities quietly no -Is often on the go, acting as if driven by a motor (eg, is unable to be or uncomfortable being still for extended time, as in restaurants, meetings: may be experienced by others as being restless or difficult to keep up with) no -Often talks excessively no -Often blurts out an answer before a question has been completed (eg, completes people' sentences; cannot wait for turn in conversation) no -Often has difficulty waiting his or her turn (eg, while waiting in line) no -Often interrupts or intrudes on others (eg, butts into conversations, games, or activities; may start using other people's things without asking or receiving permission; for adolescents and adults, may intrude into or take over what others are doing) no Review of Systems Constitutional: Negative for chills and fever. Respiratory: Negative for cough and shortness of breath. Cardiovascular: Negative for chest pain and palpitations. Skin: Negative for rash. Psychiatric/Behavioral: Positive for decreased concentration. Negative for dysphoric mood. The patient is not nervous/anxious. Objective BP 122/74 Pulse 88 Ht 1.6 m (5' 3 ) Wt 79.4 kg (175 lb) BMI 31.00 kg/m Physical Exam Constitutional: Appearance: Normal appearance. HENT: Head: Normocephalic and atraumatic. Eyes: General: No scleral icterus. Conjunctiva/sclera: Conjunctivae normal. Cardiovascular: Rate and Rhythm: Normal rate and regular rhythm. Heart sounds: No murmur heard. Pulmonary: Effort: Pulmonary effort is normal. No respiratory distress. Breath sounds: Normal breath sounds. Musculoskeletal: General: No swelling. Normal range of motion. Cervical back: Normal range of motion and neck supple. Skin: General: Skin is warm and dry. Findings: No rash. Neurological: General: No focal deficit present. Mental Status: She is alert. Psychiatric: Mood and Affect: Mood normal. Behavior: Behavior normal. Assessment/Plan Problem List Items Addressed This Visit ICD-10-CM Attention deficit hyperactivity disorder (ADHD), predominantly inattentive type F90.0 Significantly impacting her home and work life. Reviewed diagnosis and tx options. Using shared decision making, we decided to trial low dose stimulant given underlying chronic medical conditions. UDS/CSA today. Follow up in 1mo for recheck, sooner if needed. Return precautions reviewed. Other Visit Diagnoses Codes Routine general medical examination at a health care facility - Primary Z00.00 Relevant Orders Drug Screen, Urine With Reflex to Confirmation (Completed) Amphetamine Confirm, Urine (Completed) THC (Marijuana), Urine, Confirmation (Completed) Follow up in 1mo for recheck, sooner if needed. documented in this encounter [facility] Work Phone: 04-07-2023 Emergency department Note HPI Chief Complaint Patient presents with Shoulder Pain Left shoulder pain, left rib pain. This 33-year-old female states that she woke this morning with sudden mild left-sided shoulder pain and left rib pain she denies any known injuries to the shoulder. She states that she was out and about doing things when she had sudden onset of worsening symptoms of left shoulder and left rib area with associated nausea. She states that the pain is worse with movement of the left shoulder is located in the anterior aspect and also it is like a rib pain lower anterior rib region. 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 She was initially seen in urgent care center and referred to the ED for evaluation.Patient is right-hand dominant. Patient states that taking a deep breath causes the pain to get worse. History provided by: Patient educational interpreter used: No No data recorded Patient History Past Medical History: Diagnosis Date David-Danlos disease IBS (irritable bowel syndrome) Inflammatory polyarthropathy (CMS/HCC) POTS (postural orthostatic tachycardia syndrome) Past Surgical History: Procedure Laterality Date COLONOSCOPY 12/2022 Family History Problem Relation Name Age of Onset Hyperlipidemia Mother Diabetes Father Breast cancer Maternal Grandmother Hypertension Maternal Grandmother Cancer Maternal Grandmother Parkinsonism Maternal Grandmother Other (Cardiac disorder) Maternal Grandfather Stroke Paternal Grandmother Other (Cardiac disorder) Paternal Grandmother Diabetes Paternal Grandmother Other (Cardiac disorder) Other Aunt Other (cardiac disorder) Other Uncle Social History Tobacco Use Smoking status: Former Types: Cigarettes Smokeless tobacco: Never Vaping Use Vaping Use: Every day Substance Use Topics Alcohol use: Not on file Drug use: Yes Types: Marijuana Physical Exam ED Triage Vitals [04/07/23 1525] Temp Heart Rate Resp BP 37.3 C (99.1 F) 96 16 142/84 SpO2 Temp Source Heart Rate Source Patient Position 100 % Temporal -- -- BP Location FiO2 (%) Left arm -- Physical Exam Vitals and nursing note reviewed. Constitutional: Appearance: Normal appearance. She is normal weight. HENT: Head: Normocephalic. Nose: Nose normal. Eyes: Extraocular Movements: Extraocular movements intact. Pupils: Pupils are equal, round, and reactive to light. Cardiovascular: Rate and Rhythm: Normal rate and regular rhythm. Pulses: Normal pulses. Pulmonary: Breath sounds: Normal breath sounds. Comments: Patient does splint with taking a deep breath. Chest: Chest wall: Tenderness present. Abdominal: General: Abdomen is flat. Bowel sounds are normal. Palpations: Abdomen is soft. Musculoskeletal: Cervical back: Normal range of motion and neck supple. Comments: Evaluation of the left upper extremity reveals distal pulses are +2/4 present at the radial ulnar aspect of the wrist. Distally cap refill less than 2 seconds and light to sensation is intact. Patient is focal tenderness to the anterior shoulder. Median, ulnar, radial nerve function grossly intact +5/5 strength distally. Skin: General: Skin is warm. Neurological: General: No focal deficit present. Mental Status: She is alert and oriented to person, place, and time. Psychiatric: Mood and Affect: Mood normal. Review of Systems Cardiovascular: Positive for chest pain. Left lateral lower rib pain Musculoskeletal: Positive for arthralgias. Pain of left anterior shoulder ED Course & MDM Diagnoses as of 04/07/23 1720 Subluxation of shoulder girdle, left, initial encounter Acute chest wall pain Medical Decision Making PERC Score was 0. Patient had three-view x-rays of the left shoulder these were negative for acute abnormality. Patient also had left rib x-rays with chest and these 2 were negative for acute abnormality. I did have discussion with patient concerning x-ray results prior to discharging her home. She was provided discharge instructions tension chest pain and shoulder pain. I did recommend she talk to her physical therapist concerning for possible shoulder subluxation to improve the strength of the rotator cuff so that this does not occur in the future. Patient had no evidence of cardiac causes of chest pain nor was she have any abnormality of the x-ray to explain her symptoms. Amount and/or Complexity of Data Reviewed Radiology: Decision-making details documented in ED Course. ECG/medicine tests: Decision-making details documented in ED Course. Details: EKG was interpreted by myself at 1540 reveals normal sinus rhythm with evidence of possible left atrial enlargement. The heart rates 89 bpm. The OK interval is 146 ms. The QRS durations 88 ms. The QTc is 452 ms. [place] is 52 degrees. Risk OTC drugs. Procedure Procedures Herrera Mayer DO 04/07/23 1724 Pt has hx of David-Danlos disease and today developed intense left shoulder and left sided rib pain. Went to urgent care and was sent here for treatment. documented in this encounter [facility] Work Phone: 04-07-2023 Emergency department Triage note Pt has hx of David-Danlos disease and today developed intense left shoulder and left sided rib pain. Went to urgent care and was sent here for treatment. [facility] Work Phone: 04-07-2023 Physician Emergency department Note HPI Chief Complaint Patient presents with Shoulder Pain Left shoulder pain, left rib pain. This 33-year-old female states that she woke this morning with sudden mild left-sided shoulder pain and left rib pain she denies any known injuries to the shoulder. She states that she was out and about doing things when she had sudden onset of worsening symptoms of left shoulder and left rib area with associated nausea. She states that the pain is worse with movement of the left shoulder is located in the anterior aspect and also it is like a rib pain lower anterior rib region. 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 She was initially seen in urgent care center and referred to the ED for evaluation.Patient is right-hand dominant. Patient states that taking a deep breath causes the pain to get worse. History provided by: Patient educational interpreter used: No No data recorded Patient History Past Medical History: Diagnosis Date David-Danlos disease IBS (irritable bowel syndrome) Inflammatory polyarthropathy (CMS/HCC) POTS (postural orthostatic tachycardia syndrome) Past Surgical History: Procedure Laterality Date COLONOSCOPY 12/2022 Family History Problem Relation Name Age of Onset Hyperlipidemia Mother Diabetes Father Breast cancer Maternal Grandmother Hypertension Maternal Grandmother Cancer Maternal Grandmother Parkinsonism Maternal Grandmother Other (Cardiac disorder) Maternal Grandfather Stroke Paternal Grandmother Other (Cardiac disorder) Paternal Grandmother Diabetes Paternal Grandmother Other (Cardiac disorder) Other Aunt Other (cardiac disorder) Other Uncle Social History Tobacco Use Smoking status: Former Types: Cigarettes Smokeless tobacco: Never Vaping Use Vaping Use: Every day Substance Use Topics Alcohol use: Not on file Drug use: Yes Types: Marijuana Physical Exam ED Triage Vitals [04/07/23 1525] Temp Heart Rate Resp BP 37.3 C (99.1 F) 96 16 142/84 SpO2 Temp Source Heart Rate Source Patient Position 100 % Temporal -- -- BP Location FiO2 (%) Left arm -- Physical Exam Vitals and nursing note reviewed. Constitutional: Appearance: Normal appearance. She is normal weight. HENT: Head: Normocephalic. Nose: Nose normal. Eyes: Extraocular Movements: Extraocular movements intact. Pupils: Pupils are equal, round, and reactive to light. Cardiovascular: Rate and Rhythm: Normal rate and regular rhythm. Pulses: Normal pulses. Pulmonary: Breath sounds: Normal breath sounds. Comments: Patient does splint with taking a deep breath. Chest: Chest wall: Tenderness present. Abdominal: General: Abdomen is flat. Bowel sounds are normal. Palpations: Abdomen is soft. Musculoskeletal: Cervical back: Normal range of motion and neck supple. Comments: Evaluation of the left upper extremity reveals distal pulses are +2/4 present at the radial ulnar aspect of the wrist. Distally cap refill less than 2 seconds and light to sensation is intact. Patient is focal tenderness to the anterior shoulder. Median, ulnar, radial nerve function grossly intact +5/5 strength distally. Skin: General: Skin is warm. Neurological: General: No focal deficit present. Mental Status: She is alert and oriented to person, place, and time. Psychiatric: Mood and Affect: Mood normal. Review of Systems Cardiovascular: Positive for chest pain. Left lateral lower rib pain Musculoskeletal: Positive for arthralgias. Pain of left anterior shoulder ED Course & MDM Diagnoses as of 04/07/231719 Subluxation of shoulder girdle, left, initial encounter Acute chest wall pain Medical Decision Making PERC Score was 0. Patient had three-view x-rays of the left shoulder these were negative for acute abnormality. Patient also had left rib x-rays with chest and these 2 were negative for acute abnormality. I did have discussion with patient concerning x-ray results prior to discharging her home. She was provided discharge instructions tension chest pain and shoulder pain. I did recommend she talk to her physical therapist concerning for possible shoulder subluxation to improve the strength of the rotator cuff so that this does not occur in the future. Patient had no evidence of cardiac causes of chest pain nor was she have any abnormality of the x-ray to explain her symptoms. Amount and/or Complexity of Data Reviewed Radiology: Decision-making details documented in ED Course. ECG/medicine tests: Decision-making details documented in ED Course. Details: EKG was interpreted by myself at 1540 reveals normal sinus rhythm with evidence of possible left atrial enlargement. The heart rates 89 bpm. The OK interval is 146 ms. The QRS durations 88 ms. The QTc is 452 ms. [place] is 52 degrees. Risk OTC drugs. Procedure Procedures Herrera Mayer DO 04/07/231723 [facility] Work Phone: 03-18-2023 Evaluation + Plan note Associated Problem(s): Inflammatory polyarthropathy (CMS/HCC) Doing well with Plaquenil and prn (rare) prednisone. Continue close follow up with rheumatology as previously scheduled. [facility] Work Phone: 09-10-2023 Evaluation + Plan note Associated Problem(s): Irritable bowel syndrome with constipation Much improved with Trulance. Will continue. [facility] Work Phone: 03-18-2023 Miscellaneous Notes Associated Problem(s): Inflammatory polyarthropathy (CMS/HCC) Doing well with Plaquenil and prn (rare) prednisone. Continue close follow up with rheumatology as previously scheduled. Associated Problem(s): Irritable bowel syndrome with constipation Much improved with Trulance. Will continue. Associated Problem(s): Other fatigue Improved with Wellbutrin. Using shared decision making, we decided to increase to 300mg every day. Medication dosing and side effects reviewed. Follow up in 1mo for recheck, sooner if needed. Associated Problem(s): POTS (postural orthostatic tachycardia syndrome) Stable and managing well at this time. PT in maintenance mode. documented in this encounter [facility] Work Phone: 03-18-2023 Evaluation + Plan note Associated Problem(s): Other fatigue Improved with Wellbutrin. Using shared decision making, we decided to increase to 300mg every day. Medication dosing and side effects reviewed. Follow up in 1mo for recheck, sooner if needed. [facility] Work Phone: 03-18-2023 Evaluation + Plan note Associated Problem(s): POTS (postural orthostatic tachycardia syndrome) Stable and managing well at this time. PT in maintenance mode. [facility] Work Phone: 03-15-2023 History of Present illness Narrative Subjective Patient ID: Estrellita Sapp is a 33 y.o. female who presents for 3 month check. Discuss PT and Wellbutrin. HPI Anx/dep/fatigue - really liking the Wellbutrin, no longer having to take naps, less brain fog/mental block, symptoms do start to return later in the day, but overall liking and has made a huge difference in her productivity level IBS - following with GI, started on Trulance which really seems to be helping, bloating essentially resolved, having daily BM, able to eat twice a day, feels hungry, also drinking more water Inflammatory polyarthropathy - following with rheum, doing well with Plaquenil, taking prednisone about once every 2wks, due for eye check 06/2023 POTS - overall improved and stable at this time, very in tune with her triggers, in PT maintenance mode for now Review of Systems Constitutional: Negative for chills and fever. Respiratory: Negative for cough and shortness of breath. Cardiovascular: Negative for chest pain. Skin: Negative for rash. Psychiatric/Behavioral: Negative for dysphoric mood. The patient is not nervous/anxious. Objective BP 112/76 Pulse 76 Ht 1.6 m (5' 3 ) Wt 75.9 kg (167 lb 6.4 oz) BMI 29.65 kg/m Physical Exam Constitutional: Appearance: Normal appearance. HENT: Head: Normocephalic and atraumatic. Eyes: General: No scleral icterus. Conjunctiva/sclera: Conjunctivae normal. Cardiovascular: Rate and Rhythm: Normal rate and regular rhythm. Heart sounds: No murmur heard. Pulmonary: Effort: Pulmonary effort is normal. No respiratory distress. Breath sounds: Normal breath sounds. Musculoskeletal: General: No swelling. Normal range of motion. Cervical back: Normal range of motion and neck supple. Skin: General: Skin is warm and dry. Findings: No rash. Neurological: General: No focal deficit present. Mental Status: She is alert. Psychiatric: Mood and Affect: Mood normal. Behavior: Behavior normal. Assessment/Plan Problem List Items Addressed This Visit POTS (postural orthostatic tachycardia syndrome) - Primary Stable and managing well at this time. PT in maintenance mode. Other fatigue Improved with Wellbutrin. Using shared decision making, we decided to increase to 300mg every day. Medication dosing and side effects reviewed. Follow up in 1mo for recheck, sooner if needed. Relevant Medications buPROPion XL (Wellbutrin XL) 300 mg 24 hr tablet Irritable bowel syndrome with constipation Much improved with Trulance. Will continue. Inflammatory polyarthropathy (CMS/HCC) Doing well with Plaquenil and prn (rare) prednisone. Continue close follow up with rheumatology as previously scheduled. documented in this encounter [facility] Work Phone: 01-15-2023 History of Present illness Narrative Patient identified by name and date of . Patient presented with 100/70 before 69 HR before treatment. Reviewed kegles and importance in progression of reps she verbalized good understanding. Reviewed cardio and progression until next visit she demonstrated good understanding. Reviewed ISO shoulder exercises and positions for low back and core exercises depending of Sx. [facility] [address] [employer] Work Phone: 01-13-2023 History of Present illness Narrative Patient identified by name and date of . 100/70 before 69 HR before treatment. [facility] [address] [employer] Work Phone: 12-24-2022 History of Present illness Narrative Patient identified by name and date of . Patient presented with BP120/80, 94 HR before treatment. She was able to resume cardio this date. She demonstrated good understanding of HEP verbal review. Reviewed sitting postures and how to correct for proper posture. Patient presented with 122/84 80 HR after treatment. She presented with palpable tension in R glut with STW reviewed use of tennis ball for HEP. [facility] [address] [place] Work Phone: 12-20-2022 Note Patient Name: Maikol Rubio Procedure Date: 12/20/2022 11:05 AM Date of : 1990 Admit Type: Outpatient Site: [facility] 1 Ethnicity: Not or Race: White Attending MD: Hieu Moreno DO, [id number] Procedure: Colonoscopy Indications: Generalized abdominal pain, Chronic idiopathic constipation Providers: Hieu Moreno DO (Doctor), Mya Sierra RN (Nurse), Yu Hernandez RN (Nurse) Referring: Bony Eisenberg Medicines: Midazolam 10 mg IV, Meperidine 50 mg IV, Diphenhydramine 50 mg IV, Glucagon 1 mg IV Complications: No immediate complications. Procedure: Pre-Anesthesia Assessment: - Prior to the procedure, a History and Physical was performed, and patient medications and allergies were reviewed. The patient is competent. The risks and benefits of the procedure and the sedation options and risks were discussed with the patient. All questions were answered and informed consent was obtained. Patient identification and proposed procedure were verified by the physician in the pre-procedure area. Mental Status Examination: alert and oriented. Airway Examination: normal oropharyngeal airway and neck mobility. Respiratory Examination: clear to auscultation. CV Examination: normal. Prophylactic Antibiotics: The patient does not require prophylactic antibiotics. Prior Anticoagulants: The patient has taken no anticoagulant or antiplatelet agents. ASA Grade Assessment: II - A patient with mild systemic disease. After reviewing the risks and benefits, the patient was deemed in satisfactory condition to undergo the procedure. The anesthesia plan was to use moderate sedation / analgesia (conscious sedation). Immediately prior to administration of medications, the patient was re-assessed for adequacy to receive sedatives. The heart rate, respiratory rate, oxygen saturations, blood pressure, adequacy of pulmonary ventilation, and response to care were monitored throughout the procedure. The physical status of the patient was re-assessed after the procedure. After I obtained informed consent, the scope was passed under direct vision. Throughout the procedure, the patient's blood pressure, pulse, and oxygen saturations were monitored continuously. The pediatric colonoscope was introduced through the anus and advanced to the terminal ileum, with identification of the appendiceal orifice and IC valve. The colonoscopy was performed without difficulty. The patient tolerated the procedure well. The quality of the bowel preparation was good. The terminal ileum, ileocecal valve, appendiceal orifice, and rectum were photographed. Findings: The perianal and digital rectal examinations were normal. Pertinent negatives include normal sphincter tone and no palpable rectal lesions. The terminal ileum appeared normal. The entire examined colon appeared normal on direct and retroflexion views. Moderate Sedation: Moderate (conscious) sedation was administered by the nurse and supervised by the endoscopist. The following parameters were monitored: oxygen saturation, heart rate, blood pressure, and response to care. Total physician intraservice time was 22 minutes. Estimated Blood Loss: Estimated blood loss: none. Impression: - The examined portion of the ileum was normal. - The entire examined colon is normal on direct and retroflexion views. - No specimens collected. Recommendation: - Patient has a contact number available for emergencies. The signs and symptoms of potential delayed complications were discussed with the patient. Return to normal activities tomorrow. Written discharge instructions were provided to the p (more content not included)... [facility] 11-06-2022 History of Present illness Narrative General Cardiology New Patient Clinic Consult [facility], Heart & Vascular 11/06/2022 Radha England MD [address] [place] [id number] Patient: Estrellita Sapp Date of : 1990 (32 y.o.) PCP: Bony Connell DO Date of Service: 11/06/2022 Chief Complaint: Follow-up (Palpitations, SOB getting better, lightheaded, dizzy ) Assessment and Plan: 1. Postural dizziness with presyncope 2. Tachycardia Patient has continued to make excellent strides with conservative management. Echocardiogram was normal. At this time I do not believe she needs further cardiovascular evaluation, but we would be happy to help in the future It has been a pleasure caring for this patient. Please don't hesitate to reach out to my office directly with any questions or concerns. Follow-up: Return if symptoms worsen or fail to improve. Radha England MD, [facility] Non-Invasive Cardiology [facility] P:[phone] F:[phone] History of Present Illness: Estrellita Sapp is a 32 y.o. woman with a past medical history of potential David-Danlos hypermobility syndrome who presents for follow-up. When I met with her May 2022 she was highly symptomatic with postural orthostatic tachycardia syndrome. We reviewed multiple methods to help improve symptoms, and she has taken them to heart. Her quality of life is significantly improved. She is working with a physical therapy specialist for David-Danlos and has seen tremendous improvement. She continues to stay well-hydrated using compression stockings etc. She feels comfortable driving again as she feels as though she has her startle reflex under control. No first-degree relative family history of premature coronary artery disease Review of Systems: All systems were reviewed and are noted to be negative unless otherwise stated in HPI. Past Medical History: Diagnosis Date David-Danlos syndrome type III Tachycardia History reviewed. No pertinent surgical history. Family History Problem Relation Age of Onset Stroke Paternal Grandmother Heart attack Paternal Grandmother Social History Tobacco Use Smoking Status Never Smokeless Tobacco Never Vaping Use Vaping Status Every Day Substances: Flavoring Allergies: Patient has no known allergies. All of the information has been reviewed at today's visit and modified if necessary. Home Medications: Current Outpatient Medications: hydrOXYchloroQUINE (PLAQUENIL) 200 mg tablet, Take 1 (one) tablet (200 mg total) by mouth 2 (two) times a day ., Disp: , Rfl: predniSONE (DELTASONE) 10 MG tablet, TAKE 1 TABLET BY MOUTH EVERY DAY FOR 3 TO 5 DAYS WITH A FLARE, Disp: , Rfl: SODIUM CHLORIDE ORAL, Take 1 g by mouth 2 (two) times a day 2 in the AM and 2 in the PM ., Disp: , Rfl: Physical Exam: BP 127/85 (BP Location: Left arm, Patient Position: Sitting, BP Cuff Size: Adult) Pulse 95 Ht 5' 3 Wt 75.8 kg (167 lb) SpO2 98% BMI 29.58 kg/m Constitutional: Well appearing female, no acute distress Head: Normocephalic and atraumatic. Eyes: Conjunctivae are normal, no scleral icterus, no corneal arcus Neck: No acanthosis nigricans, no elevated jugular venous distension, no hepatojugular reflux Cardiovascular: Regular rate and rhythm, no murmurs appreciated on today's exam, normal S1 and S2, no rubs or gallops, PMI is midline Pulses: +2 dorsalis pedis pulses bilaterally Musculoskeletal: Normal range of motion. No cyanosis. No peripheral Edema Neurological: AOx3, moving all extremities normally Skin: Skin is warm and dry, normal hair pattern Psychiatric: Normal mood and affect, appropriate conversation Cardiovascular Studies: Echocardiogram May 2022 Summary 1. Left ventricular chamber size, wall thickness, systolic and diastolic function are normal with no regional wall motion abnormalities with an estimated ejection fraction of 55-60%. 2. Right ventricular chamber dimension is normal. Right ventricular systolic function is normal. 3. No hemodynamically significant valvular disease. 4. There is no pulmonary hypertension, estimated right ventricle systolic pressure is 27 mmHg. EKG 05/2022 shows sinus rhythm, no evidence of ischemia or infarction Labs: Significant blood work shows hemoglobin 13.7, platelets 260, glucose 85, sodium 140, potassium 43, creatinine 0.96, albumin 4.3, normal liver function test, GRIS negative Total cholesterol 201, HDL 64, LDL 120, triglycerides 87 documented in this encounter [facility] 11-06-2022 Instructions Donato Gary MA - 11/06/2022 2:28 PM EDT How to Contact your Care Team: Provider: Dr. Rdaha England MD Clinic Nurse: Catherine Mott RN REFILLS: When in need for refills please call your care team or the office at [phone]. Please include medication name, pharmacy name, and specify 30-day or 90-day supply. Please check with your pharmacy within 24 hours of request for your refill. You must follow up as directed to continue current refills. Thank you! documented in this encounter [facility] 10-16-2022 History of Present illness Narrative Patient identified by name and date of . patient presented with 110/70 BP 87HR before treatment, and 128/78BP, 90HR after stepper. She demonstrated fair tolerance with treatment with decreased Sx after treatment. She presented with pelvic malalignment that responded well to MET. She was able to demonstrate good understanding and progression with kegels. [facility] Work Phone: 10-11-2022 History of Present illness Narrative Patient identified by name and date of . Patient presented with BP 122/90 with HR 91 in sitting prior to treatment. She was able to start pre-month day one of the protocol with fatigue noted at end of session that ceased after rest break, she presented with BP 120/75 sitting and HR 86 at end of treatment and presented with HR rates 144 high 100 low with exercises.Supine HR 81, Max HR 187, mid-max 156-166, Base pace 136-146, recovery under 136. [facility] [address] [place] Work Phone: 10-06-2022 History of Present illness Narrative Patient identified by name and date of .Ms. Sapp is progressing well through their POC addressing POTS. Pt has attended 15 sessions since 10/06/22. The pt demonstrates and verbalizes improvements in core strength, L periscap strength, activity tolerance, and autonomic regulation. She is experiencing less progress in the last couple weeks d/t allergies however she is still showing progress despite this. She is still demoing instability d/t weakness and joint laxity which is causing pain and difficulty with functional activities. Pt reports improvements in QOL including being able to stand for work duties longer as well. As she is progressing well through POC and still demos impairments listed above, she will benefit from cont PT services following current POTS protocol. Pt with agreement and understanding. [facility] Work Phone: 06-07-2022 Note HNO ID: [id number] Author: Nolan Meneses MD Service: ? Author Type: Physician Type: Progress Notes Filed: 06/08/2022 2:08 PM Note Text: [facility] New Patient Evaluation Consulting Provider: Dr. Canada (Rheumatology) Individuals who were included in, or assisted with the encounter were: Estrellita Sapp MD Dr. Elba Bergman Chief Complaint/Issues: Estrellita Sapp is a 32 year old right-handed female seen in the [facility] for: Further joint evaluation in the setting of suspected Ehler's Danlos syndrome HPI: Estrellita Sapp is a 32 year old female with a history of suspected Ehler's Danlos syndrome, POTS, dyslipidemia, and depression/anxiety who presents for a consultation for further workup regarding joint pain. The patient has a history of joint pain, back pain, and frequent joint dislocations. She is currently undergoing workup for this with Rheumatology, but she has not yet seen Genetics. Serologic markers have been negative, per patient report. She was started on Plaquenil 200 mg BID for this joint pain and Prednisone 10 mg daily PRN for flares. She has also experienced pre-syncope and syncope, for which she was recently diagnosed with POTS. She is currently increasing electrolyte intake as treatment for this. She also reports frequent hives and contact dermatitis, as well as easy bruising. She was referred to the neuromuscular clinic from rheumatology for further workup of joint pains. She experiences significant fatigue. She also reports tingling and spasms on the ulnar side of her right hand when she holds objects such as a phone or video game controller for long periods of time. She had prior constipation which has improved after starting Plaquenil. She has bloating after eating but no early satiety. She reports light sensitivity but denies migraine headaches. She has experienced rare muscle twitches, which have been ongoing for many years. She reports straining her muscles, but denies muscle pain. She denies shooting/radiating pain, muscle weakness, issues fixing her hair or brushing her teeth, muscle atrophy, difficulty with muscle relaxation, muscle fatigability, improvement in strength after using muscles, double vision, blurred vision, issues with sustained upward gaze, dysarthria, change in voice quality, issues with chewing food, or issues with swallowing. 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 Vapes without tobacco products - No other recreational drug use. Family history: - Medical history on father's side not well known, but has a strong history of DM2 - Mother's side: Bone density issues. No history of autoimmune or neurologic disease. - No history of aneurysms General Examination: BP 133/72 Pulse 75 Ht 160 cm (5' 3 ) Wt 75.8 kg (167 lb) SpO2 99% BMI 29.58 kg/m? GENERAL: No acute distress HEENT: Normocephalic, atraumatic RESPIRATORY: No respiratory distress CARDIOVASCULAR: Warm and well-perfused ABDOMEN: Nondistended, no guarding EXTREMITIES: No cyanosis or clubbing. SKIN: No visible rashes MSK: Joint hypermobility. Detailed neurologic examination: Mental status: Orientation: Oriented to date, person, location Affect: Appropriate; intermittently tearful Cranial Nerves: II: No obvious visual deficits III/IV/: Extraocular movements intact throughout, no nystagmus, consentual light reflex present; no RAPD V: Facial sensation intact and equal bilaterally VII: Facial movements symmetric; no facial droop or ptosis VIII: Hearing intact to finger rub bilaterally IX, X: Symmetric evaluation of palate XI: Shoulder shrug and sternocleidomastoid strength full bilaterally XII: Symmetric protrusion of tongue Motor: Inspection: Normal bulk, No atrophy, No fasciculations noted throughout. No tremor at rest. Tone: Unremarkable throughout all four extremities. Muscle (Innervation) Left Right Neck Flexors (C1-6) 5/5 5/5 Neck Extensors (C1-T1) 5/5 5/5 Deltoid (C5-6, Axillary n.) 5/5 5/5 Brachioradialis (C5-6, Radial n.) 5/5 5/5 Biceps (C5-6, Musculocutaneous n.) 5/5 5/5 Triceps (C6-8, Radial n.) 5/5 5/5 Wrist extensors (C6-8, Radial n.) 5/5 5/5 Wrist flexors (C6-7, Median/Ulnar n.) 5/5 5/5 Digit Extensors (C6-8, Radial n.) 5/5 5/5 Digit flexors (C7-T1) 5/5 5/5 Finger abductors (C8, T1) 4+/5 4+/5 Hip Flexors 5/5 5/5 Hip Extensors 5/5 5/5 Hip Abductors 5/5 5/5 Hip Adductors 5/5 5/5 Knee Flexion 5/5 5/5 Knee Extension 5/5 5/5 Foot Dorsiflexion 5/5 5/5 Foot Plantarflexion 5/5 5/5 Ankle Eversion 5/5 5/5 Ankle Inversion 5/5 5/5 Reflexes: Muscle (Innervation) Left Right Biceps 2+ 2+ Triceps 2+ 2+ Brachioradialis 2+ 2+ Patellar tendon (more content not included)... [facility] 06-07-2022 Instructions Kaci Oliver MD - 06/07/2022 2:36 PM EST The numbness on the back of your left hand may be due to a small nerve injury in the radial nerve (one of the nerves in your arm). If this becomes bothersome or if you would like to pursue further workup, we can consider doing an EMG or ultrasound of the nerve. Continue to monitor symptoms, and call or send us a [employer] message if your symptoms worsen or fail to improve. documented in this encounter [facility] 06-07-2022 History of Present illness Narrative Images from the original note were not included. [facility] New Patient Evaluation Consulting Provider: Dr. Canada (Rheumatology) Individuals who were included in, or assisted with the encounter were: MD Dr. Elba Ernst Chief Complaint/Issues: Estrellita Sapp is a 32 year old right-handed female seen in the [facility] for: Further joint evaluation in the setting of suspected Ehler's Danlos syndrome HPI: Estrellita Sapp is a 32 year old female with a history of suspected Ehler's Danlos syndrome, POTS, dyslipidemia, and depression/anxiety who presents for a consultation for further workup regarding joint pain. The patient has a history of joint pain, back pain, and frequent joint dislocations. She is currently undergoing workup for this with Rheumatology, but she has not yet seen Genetics. Serologic markers have been negative, per patient report. She was started on Plaquenil 200 mg BID for this joint pain and Prednisone 10 mg daily PRN for flares. She has also experienced pre-syncope and syncope, for which she was recently diagnosed with POTS. She is currently increasing electrolyte intake as treatment for this. She also reports frequent hives and contact dermatitis, as well as easy bruising. She was referred to the neuromuscular clinic from rheumatology for further workup of joint pains. She experiences significant fatigue. She also reports tingling and spasms on the ulnar side of her right hand when she holds objects such as a phone or video game controller for long periods of time. She had prior constipation which has improved after starting Plaquenil. She has bloating after eating but no early satiety. She reports light sensitivity but denies migraine headaches. She has experienced rare muscle twitches, which have been ongoing for many years. She reports straining her muscles, but denies muscle pain. She denies shooting/radiating pain, muscle weakness, issues fixing her hair or brushing her teeth, muscle atrophy, difficulty with muscle relaxation, muscle fatigability, improvement in strength after using muscles, double vision, blurred vision, issues with sustained upward gaze, dysarthria, change in voice quality, issues with chewing food, or issues with swallowing. 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 Vapes without tobacco products - No other recreational drug use. Family history: - Medical history on father's side not well known, but has a strong history of DM2 - Mother's side: Bone density issues. No history of autoimmune or neurologic disease. - No history of aneurysms General Examination: BP 133/72 Pulse 75 Ht 160 cm (5' 3 ) Wt 75.8 kg (167 lb) SpO2 99% BMI 29.58 kg/m GENERAL: No acute distress HEENT: Normocephalic, atraumatic RESPIRATORY: No respiratory distress CARDIOVASCULAR: Warm and well-perfused ABDOMEN: Nondistended, no guarding EXTREMITIES: No cyanosis or clubbing. SKIN: No visible rashes MSK: Joint hypermobility. Detailed neurologic examination: Mental status: Orientation: Oriented to date, person, location Affect: Appropriate; intermittently tearful Cranial Nerves: II: No obvious visual deficits III/IV/: Extraocular movements intact throughout, no nystagmus, consentual light reflex present; no RAPD V: Facial sensation intact and equal bilaterally VII: Facial movements symmetric; no facial droop or ptosis VIII: Hearing intact to finger rub bilaterally IX, X: Symmetric evaluation of palate XI: Shoulder shrug and sternocleidomastoid strength full bilaterally XII: Symmetric protrusion of tongue Motor: Inspection: Normal bulk, No atrophy, No fasciculations noted throughout. No tremor at rest. Tone: Unremarkable throughout all four extremities. Muscle (Innervation) Left Right Neck Flexors (C1-6) 5/5 5/5 Neck Extensors (C1-T1) 5/5 5/5 Deltoid (C5-6, Axillary n.) 5/5 5/5 Brachioradialis (C5-6, Radial n.) 5/5 5/5 Biceps (C5-6, Musculocutaneous n.) 5/5 5/5 Triceps (C6-8, Radial n.) 5/5 5/5 Wrist extensors (C6-8, Radial n.) 5/5 5/5 Wrist flexors (C6-7, Median/Ulnar n.) 5/5 5/5 Digit Extensors (C6-8, Radial n.) 5/5 5/5 Digit flexors (C7-T1) 5/5 5/5 Finger abductors (C8, T1) 4+/5 4+/5 Hip Flexors 5/5 5/5 Hip Extensors 5/5 5/5 Hip Abductors 5/5 5/5 Hip Adductors 5/5 5/5 Knee Flexion 5/5 5/5 Knee Extension 5/5 5/5 Foot Dorsiflexion 5/5 5/5 Foot Plantarflexion 5/5 5/5 Ankle Eversion 5/5 5/5 Ankle Inversion 5/5 5/5 Reflexes: Muscle (Innervation) Left Right Biceps 2+ 2+ Triceps 2+ 2+ Brachioradialis 2+ 2+ Patellar tendon 3+ 3+ Ankle 2+ 2+ Ankle clonus Not present Not present Plantar response Downgoing Downgoing Cerebellar testing: Kfiaag-la-Iscp: No dysmetria Lxip-aq-[id number]: Smooth bilaterally Gait: Able to rise from chair unassisted. Narrow-based gait. Able to walk on heels and toes. Able to complete tandem gait. Sensory Examination: Light touch: Intact in all extremities. Pinprick: Decreased (~75%) in radial nerve distribution over dorsal portion of left hand. Pinprick present elsewhere. Vibration: Intact in all extremities. Temperature: Intact in all extremities. Proprioception: Intact in all extremities. Romberg: Negative. Assessment & Plan Estrellita Sapp is a 32 year old female with a history of suspected Ehler's Danlos syndrome, POTS, dyslipidemia, and depression/anxiety who presents for a consultation for further workup regarding joint pain. Her most significant and bothersome symptom is joint pain; she does not report significant neuromuscular complaints. Physical exam is significant for decreased sensation to pinprick in the radial nerve distribution over dorsal portion of left hand and 4+/5 interosseous muscle strength bilaterally. Overall, her history and physical exam is without significant concern from a Neuromuscular perspective. The sensory findings could be due to a small left radial nerve injury, possibly secondary to joint hypermobility. Further workup is not warranted from a Neuromuscular perspective at this time. The patient was advised to follow up if symptoms worsen or fail to improve. EMG or nerve ultrasound can be considered if symptoms become bothersome or fail to improve. This was discussed with the patient and she voiced understanding. No diagnosis found. Return if symptoms worsen or fail to improve. Kaci Oliver MD Adult Neurology PGY-2 June 07, [address] Meneses. Staff Addendum: I have seen and evaluated the patient and discussed the case with the resident physician. I agree with the assessment and plan as documented in the resident s note. 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 Patient denies neuromuscular symptoms and neurological examination is benign. Difficulty with finger abduction likely due to reduced activation in setting of pain. Only finding is right dorsal hand sensory change in possible radial sensory distribution, which she was not aware of until directly assessed. Could proceed with testing such as EMG radial nerve protocol and/or neuromuscular ultrasound of the arms, but yield is likely to be low. Patient prefers to focus on POTS and EDS which are being managed by cardiology and rheumatology respectively. Follow up as needed. Nolan Meneses MD Data Review Objective Current Outpatient Medications Medication Sig predniSONE (DELTASONE) 10 mg tablet 10 mg as needed. hydrOXYchloroQUINE (PLAQUENIL) 200 mg tablet Take 200 mg by mouth twice daily. No current facility-administered medications for this visit. There is no problem list on file for this patient. No past medical history on file. No past surgical history on file. Social History Tobacco Use Smoking status: Former Packs/day: 0.25 Types: Cigarettes Quit date: 05/25/2021 Years since quittin.0 Smokeless tobacco: Never Vaping Use Vaping Use: current everyday user Start date: 03/18/2020 Substances: Flavoring Devices: Disposable Substance Use Topics Alcohol use: Yes Alcohol/week: 3.0 standard drinks Types: 3 Glasses of wine per week Drug use: Yes Frequency: 7.0 times per week Types: Marijuana Comment: everday for pain No family history on file. Review of Systems: See HPI Lab and Test Review: No results found for this or any previous visit. Outside Data/Labs: Subjective Patient-Entered Data: Autonomic Screening COMPASS-31 Past Scores No flowsheet data found. NM Treatment and Fall Risk No flowsheet data found. PROMIS-10 PROMIS 10 06/06/2022 In general, would you say your health is: Poor In general, would you say your quality of life is: Poor In general, how would you rate your physical health? Poor In general, how would you rate your mental health, including your mood and your ability to think? Excellent In general, how would you rate your satisfaction with your social activities and relationships? Fair To what extent are you able to carry out your everyday physical activities such as walking, climbing stairs, carrying groceries, or moving a chair? A little In general, please rate how well you carry out your usual social activities and roles. (This includes activities at home, at work and in your community, and responsibilities as a parent, child, spouse, employee, friend, etc.) Poor How would you rate your pain on average? 4 How would you rate your fatigue on average? Severe How often have you been bothered by emotional problems such as feeling anxious, depressed or irritable? Sometimes PROMIS Adult Short Form-Global Health Score (Physical) 29.6 (Poor) PROMIS Adult Short Form-Global Health Score (Mental) 41.1 (Good) PHQ-9 PHQ-9 All Questions 06/06/2022 Little interest or pleasure in doing things 1 Feeling down, depressed, or hopeless 1 Trouble falling or staying asleep, or sleeping too much 2 Feeling tired or having little energy 3 Poor appetite or overeating 1 Feeling bad about yourself - or that you are a failure or have let yourself or your family down 2 Trouble concentrating on things, such as reading the newspaper or watching television 2 Moving or speaking so slowly that other people could have noticed. Or the opposite - being so fidgety or restless that you have been moving around a lot more than usual 0 Thoughts that you would be better off , or of hurting yourself in some way 0 PHQ-9 Score 12 (0-4) minimal depression (5-9) mild depression (10-14) moderate depression (15-19) moderately severe depression (20-27) severe depression VIVIAN-7 VIVIAN-7 All Questions 06/06/2022 Nervous, anxious or on edge 0 Not being able to stop or control worrying 0 Worrying too much 0 Trouble relaxing 0 Restless 0 Annoyed or irritable 0 Afraid something awful might happen 0 VIVIAN-7 Score 0 (0-5) mild anxiety (6-10) moderate anxiety (11-15) moderately severe anxiety (16-21) severe anxiety Sleep 06/06/2022 What is your average total sleep time per night over the past 4 weeks? 7 Hours What is your average total sleep time during the day over the past 4 weeks? 9 Hours Have you been diagnosed with sleep apnea? No Do you snore loudly? No Do you often feel sleepy, tired, or fatigued during the day? Yes Have you been told that you stop breathing during sleep? No Have you been told or are you being treated for high blood pressure? No Probability of moderate-severe sleep apnea (%) SAPS V2 1 (Sleep study not recommended) Insomnia Severity Index 06/06/2022 Difficulty falling asleep 3 Difficulty staying asleep 0 Problem waking up too early 0 Satisfied/dissatisfied with current sleep pattern 2 Sleep interferes with daily functions 0 Sleep problems noticeable to others 0 Worried/distressed about current sleep problems 0 Score 5 I spent a total of 120 minutes on the date of the service which included preparing to see the patient, [id number] patient care, completing clinical documentation, obtaining and/or reviewing separately obtained history, performing a medically appropriate examination, and counseling and educating the patient/family/caregiver. Kaci Oliver MD Adult Neurology PGY-2 June 07, [address] Meneses. documented in this encounter [facility] 01-06-2022 History of Present illness Narrative covid start of 01/2022, lasted for 1.5wks, symptoms worse since then scout bpyesterday - went through back door, bent down to pet dogs, walked up stairs, woozy, nausea, pushed through, a few min latera, was sitting, felt very drunk, dizzy, nausea, blurry, laid on floor 30minstartles easy and blacks out , sometimes tunnel vision, a couple weeks agoHR increases with standingtrying to increase water - 2-3 bottles per dayshaky today -[facility] 205 DO Work Phone: 01-06-2022 History of Present illness Narrative Patient presents today with chief complaint of dizziness. States that she had covid early 01/2022. URI symptoms lasted for about 1.5wks. Since that time, has had persistent dizziness and episodes of lightheadedness. States that she bent down to pet her dogs yesterday. After standing upright and walking up the stairs, developed dizziness, lightheadedness, nausea. Was able to remain upright. A few minutes later while sitting, she suddenly felt very drunk . Developed dizziness, nausea, blurry vision. Had to lay supine on floor x30min before returning to baseline. Also notes that she startles easily at baseline. More recently, she blacks out when startled. BP and HR have also been abnormal. WHen standing from sitting position, HR increases and BP decreases. Has been trying to increase water intake and is up to 2-3 bottles of water per day. [facility] 205 DO Work Phone: 12-26-2021 History of Present illness Narrative Patient presents today for follow up.Regarding multiple joint pain, severe back pain has improved but continues to struggle with persistent diffuse joint pain. Reports occasional joint swelling, stiffness every morning scout hands that is better with cracking joints. Has also noticed that she feels more uncomfortable in heat with exacerbation of her joint swelling and stiffness.Regarding contraception/cervical ca screening, states that [facility] was unable to be [facility] so [facility]. Has upcoming appt in 2wks. Pap has not yet been done. Plan is for insertion of new IUD immediately after removal of current one. [facility] 205 DO Work Phone: [facility] Postural dizziness with presyncope- Primary [facility] Diagnosis POTS (postural orthostatic tachycardia syndrome)- Primary Unspecified tachycardia Other fatigue Irritable bowel syndrome with constipation Irritable bowel syndrome Inflammatory polyarthropathy (CMS/HCC) Unspecified inflammatory polyarthropathy documented in this encounter [facility] Work Phone: Evaluation note* Diagnosis Acute pain of left shoulder- Primary Subluxation of shoulder girdle, left, initial encounter Acute chest wall pain documented in this encounter [facility] Work Phone: Evaluation note* Diagnosis Irritable bowel syndrome with constipation Irritable bowel syndrome Generalized abdominal pain Abdominal pain, generalized Postural orthostatic tachycardia syndrome (POTS) Other specified disorders involving the immune mechanism, not elsewhere classified (CMS/HCC) Inflammatory polyarthropathy (CMS/HCC) Unspecified inflammatory polyarthropathy David-Danlos syndrome, unspecified Nicotine dependence, other tobacco product, uncomplicated documented in this encounter [facility] Work Phone: Evaluation note* Diagnosis Routine general medical examination at a health care facility- Primary Attention deficit hyperactivity disorder (ADHD), predominantly inattentive type documented in this encounter [facility] Work Phone: History of Present illness Narrative* last PCP 12yrs ago * allergies - recurrent sinus infection, some sort of procedure recommended by provider, never sawENT, wore masks to manage allergies, Claritin, seasonal, steamers for sinus, Mucinex, doing better since moving to [place] and back x4yrs * has IUD by PP, in in 2013, PP going to replace * constipation for multiple years, goes every 3-4 days, not straining, otherwise asymptomatic, some bloating, needs to drink more water, eats a lot of fiber * anx/dep - coping well, went to therapist in the past which helped, hydroxyzine in future? * flexible, started bothering her 4-5yrs ago, 1.5-2mo ago stabbing pain lateral R hip randomly while walking, over internal rotation of R hip, tingling/numbness around to foot medially to medial R footto big toe, went to chiropractor, tried rest and ibuprofen, Dr. Avalos 1mo ago, did exam, exam said 4 damaged vertebrae, cracked, felt good for 1d, then super sore, went back 2 more times, worse andworse, gets better gradually, hip and numbness/tingling gone * adjusted neck last one, radiculo went away after first visit * now having posterior neck pain and low back pain - always has neck pain * L leg feels weak and circumf pain - 1mo worse * ibuprofen 400mg q12hr * pain keeping her from sleep * Cervical Cancer Screening: no recent pap, will go to [facility], no hx of abnormal * Breast Cancer Screening: mgma with breast CA, mom with bx wnl, 40 * Osteoporosis Screenin * Colon Cancer Screening: no fhx, asymptomatic, 44 * Tobacco: vapes, quit 12/2020 when she quit high stress job (07/12-2ppd), hx marijuana nothing now * Alcohol: a few drinks per night, depends on pain level * Recreational Drugs: * Immunizations: due for covid booster, first 2 in 2020, missed flu shot, due for TDaP [facility] 205 DO Work Phone: History of Present illness Narrative* last PCP 12yrs ago * allergies - recurrent sinus infection, some sort of procedure recommended by provider, never sawENT, wore masks to manage allergies, Claritin, seasonal, steamers for sinus, Mucinex, doing better since moving to [place] and back x4yrs * has IUD by PP, in in 2014, PP going to replace * constipation for multiple years, goes every 3-4 days, not straining, otherwise asymptomatic, some bloating, needs to drink more water, eats a lot of fiber * anx/dep - coping well, went to therapist in the past which helped, hydroxyzine in future? * flexible, started bothering her 4-5yrs ago, 1.5-2mo ago stabbing pain lateral R hip randomly while walking, over internal rotation of R hip, tingling/numbness around to foot medially to medial R footto big toe, went to chiropractor, tried rest and ibuprofen, Dr. Avalos 1mo ago, did exam, exam said 4 damaged vertebrae, cracked, felt good for 1d, then super sore, went back 2 more times, worse andworse, gets better gradually, hip and numbness/tingling gone * adjusted neck last one, radiculo went away after first visit * now having posterior neck pain and low back pain - always has neck pain * L leg feels weak and circumf pain - 1mo worse * ibuprofen 400mg q12hr * pain keeping her from sleep * Cervical Cancer Screening: no recent pap, will go to [facility], no hx of abnormal * Breast Cancer Screening: mgma with breast CA, mom with bx wnl, 40 * Osteoporosis Screenin * Colon Cancer Screening: no fhx, asymptomatic, 44 * Tobacco: vapes, quit 12/2020 when she quit high stress job (07/12-2ppd), hx marijuana nothing now * Alcohol: a few drinks per night, depends on pain level * Recreational Drugs: * Immunizations: due for covid booster, first 2 in 2020, missed flu shot, due for TDaP -[facility] 205 DO Work Phone: History of Present illness Narrative* This is a 31yo female with pmhx significant for seasonal allergies, constipation, anx/dep, joint pain who presents today to establish and discuss as below. Last PCP 12yrs ago. No recent labs. * Regarding seasonal allergies, states that she has recurrent episodes of sinusitis. Usually gets medical care in Urgent Care and states that some sort of procedure was recommended by a UC provider butdid did not follow up with an ENT. She manages with Claritin, sinus rinses, Mucinex. Moved to [place] and then back to [place] 4yrs ago and has since had improvement of her symptoms. * Regarding constipation, states that she had struggled for multiple years. Has a BM every 3-4d, but denies straining. Has some associated occasional bloating, but denies hematochezia, melena, abd pain, n/v. Has tried to improve her fiber intake, but is not drinking enough water. * Regarding anx/dep, states that she is doing well at this time. Followed with a therapist in the past, but not currently. * Regarding joint pain, states that she first started noticing symptoms 4-5yrs ago. About 1.5-2mo ago, developed stabbing pain in the lateral R hip when she (over) internally rotated R hip. Pain was worse with with ambulation/weight bearing. She reports associated numbness/tingling anterior thigh which circled medially to media R foot and big toe. Due to persistence of symptoms, she went to chiropractor for evaluation about 1mo ago. Was told that she has 4 damaged vertebra , but no XRs were done. States that her back was cracked and felt improved for about 1 day and then has worsening of her pain. Went back for 2 additional chiropractic manipulations - pain worsened each time. Since that time, pain has gradually started to improve. Numbness and tingling has resolved. When she last saw her chiropractor, also had manipulation of her neck due to chronic neck pain. The back/hip pain has beenkeeping her from sleep. Has tried taking 400mg ibuprofen bid. Of note, she also has very flexible joints. Is not aware of any fhx autoimmune/rheumatologic conditions. Denies LE weakness, saddle anesthesia, urinary retention, bowel/bladder incontinence. * Cervical Cancer Screening: no recent pap, plans to go to [facility] for appt (IUD placed by [facility] in 2013, plans to replaced with new) * Breast Cancer Screening: mgma with breast CA, mom with bx wnl per pt report, plan to start at age 40 * Osteoporosis Screening: plan to start at age 65 * Colon Cancer Screening: no fhx, asymptomatic, plan to start at age 44 * Tobacco: vapes, quit smoking 12/2020 when she quit high stress job (07/12-pd) * Alcohol: a few drinks per night, depends on pain level * Recreational Drugs: marijuana use in the past, nothing now * Immunizations: due for covid booster, missed flu shot this year, due for TDaP [facility] DO Work Phone: History of Present illness Narrative* sent to Dr. Meneses [facility] - neuromuscular, nothing in their realm * dislocated clavicle opening a birdcage * taking Plaquenil - not benefits, diarrhea, skin peeling on feet, rash on face, taking prednisone during flares which does help * cardiology - Dr. England echo good, water, compression stockings, gatorade, head elevation, 6-7000mg sodium per day, no more syncope or presyncope, another f/u 09/2022, find some one who will figure out EDS/hEDS * really cut back on alcohol, 1 a day at most, cut out all caffeine * genetic is we can't find someone * Declines influenza. [facility] DO Work Phone: History of Present illness Narrative* sent to Dr. Meneses [facility] - neuromuscular, nothing in their realm * dislocated clavicle opening a birdcage * taking Plaquenil - not benefits, diarrhea, skin peeling on feet, rash on face, taking prednisone during flares which does help * cardiology - Dr. England echo good, water, compression stockings, gatorade, head elevation, 6-7000mg sodium per day, no more syncope or presyncope, another f/u 09/2022, find some one who will figure out EDS/hEDS * really cut back on alcohol, 1 a day at most, cut out all caffeine * genetic is we can't find someone * Declines influenza. [facility] DO Work Phone: History of Present illness Narrative* MEDICAL GENETICS INITIAL VISIT NOTE * Medical history was obtained from the patient. Prior to this appointment, [facility] and [facility]. * PCP/Referring provider: Dr. Bony Connell * Dear Dr. Connell: * It was a pleasure to see Ms. Sapp in clinic today. Ms. Sapp is a 32-year-old female who was referred to Genetics for evaluation of inherited connective tissue disorders. She has longstanding musculoskeletal symptoms as outlined below. She was seen by Rheumatology recently and no specific diagnos is of autoimmune disorder was made. She however has a diagnosis of inflammatory arthritis in chart and was prescribed Plaquenil and prednisone as needed, with reported partial improvement in joint pain. She was seen by a neuromuscular doctor recently and there was no concern regarding a neuromuscular disorder. Pertinent negative and positive history related to inherited connective tissue disorders are as followings: * Musculoskeletal * - Hypermobility: Y * - Joint laxity: Y * - Joint dislocation: Y, R hip * - Chronic widespread musculoskeletal pain: Y * - Tendon/muscle rupture: N * - Unusual fractures: N * - Scoliosis: N * - Pectus differences: N * - Flat feet: ? * Skin * - Spontaneous skin separation: N * - Easy bruising: Y * - Skin hyperextensibility: Y * - Stretch ortiz not related to weight change: Y * - Abnormal scar formation, atrophic scar, wound dehiscence: N, it takes time to heal. * Dental * - Dental crowding: Y, has used spacers. * - Gingival disease: N * - TMJ symptoms: Y * Cardiopulmonary: * - Orthostatic intolerance: Y, has had syncope. Positive tilt table test, dx with POTS. Seeing Dr. England (Cardiology). * - Pneumothorax: N * - Echocardiogram: Normal, 05/2022. * - Spontaneous rupture/aneurysm/dissection of blood vessels: N * GI/ * - * - Chronic constipation and bloating, has not seen GI. * - Hernia: N * - Rectal prolapse/(in females)pelvic/uterine prolapse: N * - Spontaneous internal organ rupture: N * Ocular/ENT * - Lens dislocation: N * - High myopia: N * - Hearing loss: N * - Tinnitus: Y, both ears * - Reports light sensitivity. * Neuropsychiatric: * - Migraines/headaches: Occasional headaches. * - Neuropathy: Y, scout. at R leg and foot. * Pediatric history: No congenital hip dislocation, congenital club feet, hypotonia, developmental delay, autism. * SH: * Originally from [place]. 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 * Pertinent history * Mom with scoliosis, receding gum line, premature teeth loss, osteoporosis (diagnosed in elementary school, reportedly), and HLP. She is not hypermobile. * MGF (d.) sudden ?cardiac in late 50s. * MGM (d. 84) with breast cancer in her 60s, Parkinson's disease, varicose veins. * Info re: paternal side is limited. PGM with ?lung collapse, pulmonary edema, pacemaker placement. * No other family members with aortopathy, vascular dissection/aneurysm, ectopia lentis, rupture of internal organs, hearing loss, blindness. * Paternal side: * Maternal side: [place]/ * Ashkenazi Orthodox: Denied * Consanguinity: Denied [employer] Work Phone: History of Present illness Narrative* MEDICAL GENETICS INITIAL VISIT NOTE * Medical history was obtained from the patient. Prior to this appointment, [facility]. * PCP/Referring provider: Dr. Bony Connell * Dear Dr. Connell: * It was a pleasure to see Ms. Sapp in clinic today. Ms. Sapp is a 32-year-old female who was referred to Genetics for evaluation of inherited connective tissue disorders. She has longstanding musculoskeletal symptoms as outlined below. She was seen by Rheumatology recently and no specific diagnos is of autoimmune disorder was made. She however has a diagnosis of inflammatory arthritis in chart and was prescribed Plaquenil and prednisone as needed, with reported partial improvement in joint pain. She was seen by a neuromuscular doctor recently and there was no concern regarding a neuromuscular disorder. Pertinent negative and positive history related to inherited connective tissue disorders are as followings: * Musculoskeletal * - Hypermobility: Y * - Joint laxity: Y * - Joint dislocation: Y, R hip * - Chronic widespread musculoskeletal pain: Y * - Tendon/muscle rupture: N * - Unusual fractures: N * - Scoliosis: N * - Pectus differences: N * - Flat feet: ? * Skin * - Spontaneous skin separation: N * - Easy bruising: Y * - Skin hyperextensibility: Y * - Stretch ortiz not related to weight change: Y * - Abnormal scar formation, atrophic scar, wound dehiscence: N, it takes time to heal. * Dental * - Dental crowding: Y, has used spacers. * - Gingival disease: N * - TMJ symptoms: Y * Cardiopulmonary: * - Orthostatic intolerance: Y, has had syncope. Positive tilt table test, dx with POTS. Seeing Dr. England (Cardiology). * - Pneumothorax: N * - Echocardiogram: Normal, 05/2022. * - Spontaneous rupture/aneurysm/dissection of blood vessels: N * GI/ * - * - Chronic constipation and bloating, has not seen GI. * - Hernia: N * - Rectal prolapse/(in females)pelvic/uterine prolapse: N * - Spontaneous internal organ rupture: N * Ocular/ENT * - Lens dislocation: N * - High myopia: N * - Hearing loss: N * - Tinnitus: Y, both ears * - Reports light sensitivity. * Neuropsychiatric: * - Migraines/headaches: Occasional headaches. * - Neuropathy: Y, scout. at R leg and foot. * Pediatric history: No congenital hip dislocation, congenital club feet, hypotonia, developmental delay, autism. * SH: * Originally from [place]. 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 * Pertinent history * Mom with scoliosis, receding gum line, premature teeth loss, osteoporosis (diagnosed in elementary school, reportedly), and HLP. She is not hypermobile. * MGF (d.) sudden ?cardiac in late 50s. * MGM (d. 84) with breast cancer in her 60s, Parkinson's disease, varicose veins. * Info re: paternal side is limited. PGM with ?lung collapse, pulmonary edema, pacemaker placement. * No other family members with aortopathy, vascular dissection/aneurysm, ectopia lentis, rupture of internal organs, hearing loss, blindness. * Paternal side: * Maternal side: [place]/ * Ashkenazi Orthodox: Denied * Consanguinity: Denied [facility] [address] Work Phone: History of Present illness Narrative* Ms. 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 Pt presents with the following impairments: generalized whole body weakness, impaired endurance, impairedankle stability/ balance, pain and popping out of R hip. These impairments contribute to difficulty in activity limitations and participation restrictions including work duties, standing, walking, jogging. The pt will benefit from skilled PT services to address the above stated impairments and functional limitations to maximize participation and ease in household, social, and work related activities. The pt has a good prognosis when considering positive factors including age, motivation, knowl edge of POTS with barriers such as nature of diagnosis. The pt verbalized understanding and agreement to goals and POC. Thank you for this referral and please call [phone] with any questions or concerns. * Clinical Presentation: Stable and/or uncomplicated characteristics. * Level of Complexity: low * Problem List: activity limitations, ADLs/IADLs/self care skills, aerobic capacity/endurance, balance, decreased functional level, decreased knowledge of HEP, pain, participation restrictions and strength. [facility] Work Phone: History of Present illness NarrativePatient identified by name and date of . Patient presented with pelvic malalignment this date that responded well to MET, added kegels and instructed for HEP she was able to demonstrate weak contraction with quick fatigue. Provided and reviewed handout for proper body mechanics and sleeping positions she verbalized good understanding. Suggested patient getting an SI belt due to malalignment and report of increased Sx after last treatment due to bike. Reviewed protocol with patient will start next treatment. [facility] [address] [place] Work Phone: History of Present illness Narrative* Patient identified by name and date of . * 117/80 92 HR at start of treatment. * HR 90-114 with exericses * 124/78 BP 78 HR * . [facility] [address] [place] Work Phone: History of Present illness Narrative* Ms. 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 Pt presents with the following impairments: generalized whole body weakness, impaired endurance, impairedankle stability/ balance, pain and popping out of R hip. These impairments contribute to difficulty in activity limitations and participation restrictions including work duties, standing, walking, jogging. The pt will benefit from skilled PT services to address the above stated impairments and functional limitations to maximize participation and ease in household, social, and work related activities. The pt has a good prognosis when considering positive factors including age, motivation, knowl edge of POTS with barriers such as nature of diagnosis. The pt verbalized understanding and agreement to goals and POC. Thank you for this referral and please call [phone] with any questions or concerns. * Clinical Presentation: Stable and/or uncomplicated characteristics. * Level of Complexity: low * Problem List: activity limitations, ADLs/IADLs/self care skills, aerobic capacity/endurance, balance, decreased functional level, decreased knowledge of HEP, pain, participation restrictions and strength. [facility] Work Phone: History of Present illness Narrative* Patient identified by name and * Manual BP taken this date 118/74. Patient demo's difficulty with L sidelying hip abduction d/t increased pain in R hip. Patient tolerates treatment with fair tolerance and intermittent rest breaks throughout. Demo's no change in symptoms at end of session. [facility] Work Phone: History of Present illness NarrativePatient identified by name and date of . Held progression of protocol this date due to patients previous Sx. Will progress next treatment if patient demonstrates tolerance. Will progress with supine/seated exercises next visit and review for HEP. Patient requires cues to demonstrate proper form with exercises and to decrease with hyper ext. She presented with BP 124/80 HR 87 at start of exerc ises. [facility] [address] [place] Work Phone: History of Present illness NarrativePatient identified by name and date of .Patient presented with BP122/75 HR 92 before and After treatment BP117/70 HR. She demonstrated increased ease with exercise this date with decreased appearance of fatigue. Reviewed protocol and instructed with cardio and limits for HEP she verbalized good understanding. Reviewed kegels she verbalized good understanding. [facility] [address] [place] Work Phone: History of Present illness NarrativePatient identified by name and date of . Held progression of protocol this date due to patients previous Sx. Will progress next treatment if patient demonstrates tolerance. Will progress with supine/seated exercises next visit and review for HEP. Patient requires cues to demonstrate proper form with exercises and to decrease with hyper ext. She presented with BP 124/80 HR 87 at start of exerc ises.[facility] Work Phone: History of Present illness NarrativePatient identified by name and date of . Patient presented with 120/78 HR 96 at start of treatment. She demonstrated good tolerance to supine and progression to seated exercises with short rest breaks. Reviewed cardio portions of HEP that patient will complete at home after treatment this date, she verbalized good understanding.[facility] [place] [address] [place] Work Phone: History of Present illness NarrativePatient identified by name and date of . Patient presented 7115/72 BP, 79 HR, 125/78 87 after treatment. Added wrist flexion/ext this date along with foam roll and instructed for HEP she demonstrated good understanding.[facility] [place] [address] [place] Work Phone: History of Present illness Narrative* Patient identified by name and date of . Patient was able to progress with protocol this date * . [address] Work Phone: History of Present illness NarrativePatient identified by name and date of . Patient presented with 120/80 BP, 92 before treatment 47-112 during treatment. She presented with 126/86 90 HR after treatment. She was able to progress with sitting exercises with use of SB for increased core strength. Attempted quadruped position thisdate she could not maintain w/o locking of elbows.[facility] [place] [address] [place] Work Phone: History of Present illness NarrativePatient identified by name and date of . Patient presented with 118/72 BP 79 HR pre cardio, and 122/80 after. She was able to progress with protocol this date. She presented with palpable tension in her R QL that responded well to STW.[facility] ServicesJeff[place] [address] [place] Work Phone: History of Present illness NarrativePatient identified by name and date of . Patient presented with before treatment 112/72 BP 79 HR. and 100/70 BP 98 HR after treatment. Reviewed HEP and progressions, she demonstrated fair tolerance with weakness noted in several areas. Added shoulder iso this date for increase in shoulder stabilization and decreased pain. [facility] [address] [place] Work Phone: History of Present illness NarrativePatient identified by name and date of . Patient reported 118/78BP 92HR at start of treatment and 110/70 BP 93 HR after. Patient required cues to maintain core with seated exercises. She demonstrated good understating. with verbal review of program. [facility] Work Phone: History of Present illness Narrative* Maikol is a pleasant 32-year-old female referred by family doctor for chronic constipation. Constipation began in late adolescence would often go 7 to 10 days without a bowel movement. Begin using laxative to relieve bowel pressure has tried [id number] MiraLAX, Metamucil, mineral oil all of which were ineffective for made her feel bloated. She currently is seeing Dr. Connell who prescribed magnesium oxide which did not help. She is currently averaging 1 bowel movement in 4 to 7 days. She states she is now lost the urge of when she has to have a bowel movement and when she goes that she usually very explosive and dramatic. She works from home at this point until it does interfere with hergetting her job done. * She has underlying David-Danlos syndrome and wonders if this could affect colonic motility. She also has joint issues does see rheumatology was diagnosed with inflammatory arthritis and is currentlyon Plaquenil daily. She denies any rectal bleeding family history negative for colorectal cancer or inflammatory bowel disease. No prior abdominal surgery. [facility] Work Phone: History of Present illness Narrative* Patient identified by name and date of . Patient presented with BP 120/82 HR 92 before treatment held cardio. She demonstrated overall fatigue. Held Cardio this date due to increased Sx will resume next treatment. * Patient presented with BP 112/70 HR 81 after treatment. She demonstrated difficulty with treatment this date with overall fatigue. [facility] Work Phone: History of Present illness NarrativePatient identified by name and date of . Patient presented with HR 81 BP 115/72 before treatment. Patient demonstrated good understanding of progression of protocol. Patient presented with BP 113/68 HR 91after treatment. [facility] [address] Work Phone: History of Present illness NarrativePatient identified by name and date of . Patient presented with 115/72 BP at the start of treatment. She demonstrated reduction of LE/hip/back Sx after prone props, instructed to resume with HEPand to decrease with seated ball exercises at this time. Reviewed cardio portion of HEP and instruction to progress to next level and how/when to progress after, she verbalized good understanding. Reviewed kegels and frequency she verbalized good understanding. Continued to instruct/review with patient importance of protocol and ways to incorporate it in her life patient demonstrated good understanding with verbalization of frustration at times due to overwhelming amount of exercises and education to maintain/progress with treatment. Overall patient demonstrates good understanding with instructions and review, but could benefit from continued instruction with decreased frequency. [facility] Work Phone: History of Present illness NarrativePatient identified by name and date of . BP 110/74 HR 72 at start of treatment. Held progression this date due to patients Sx at time of appointment. Patient required cues to increase with upright posture she presented with increased palpable tension in L shoulder. Reviewed with patient importance of proper posture and discussed work duties secondary to patients report of poor posture with work duties due to the nature of her work. Reviewed importance of HEP and consistency, and finding ways to incorporate it on long work days. Discussed with patient holding treatment until she was readyto progress with protocol, she was in agreement at this time and agreed to continue with HEP as shecan and will call when she is ready to resume/progress. [facility] Work Phone: Reason for referral (narrative)* Consultation (Routine) - Authorized Specialty Diagnoses / Procedures Referred By Brendan t Referred To Contact Primary Care Procedures Follow Up In Primary Care - Established Bony Connell DO [address] [facility] [place] [address] Referral ID Status Reason Start Date Expiration Date V isits Requested Visits Authorized [id number] Authorized 03/15/2023 09/11/2023 1 1 [facility] Work Phone: Reason for referral (narrative)* Consultation (Routine) - Pending Review Specialty Diagnoses / Procedures Referred By Brendan t Referred To Contact Family Medicine / Primary Care Procedures OK OFFICE/OUTPATIENT NEW HIGH MDM 60-74 MINUTES Herrera Mayer, [address] [place] [address] Referral ID Status Reason Start Date Expiration Date Visits Requested Visits Authorized [id number] Pending Review Specialty Services Required 04/07/2023 10/04/2023 1 1 [facility] Work Phone: Reason for visit Narrative* Initial Evaluation . Dx: M06.4, Q79.62, G90.A. * Referred by: Alayna [facility] Work Phone: Reoufi for visit Narrative* Initial Evaluation . Dx: M06.4, Q79.62, G90.A. * Referred by: Connell [facility] Work Phone: Reason for visit Narrative* Consultation (Routine) - Authorized Specialty Diagnoses / Procedures Referred By Brendan gomez Referred To Contact Primary Care Diagnoses Other fatigue Procedures Follow Up In Primary Care Bony Connell DO [address] [facility] [address] [place] [address] Referral ID Status Reason Start Date Expiration Date V isits Requested Visits Authorized [id number] Authorized 12/14/2022 06/12/2023 1 1 [facility] Work Phone: Summary Purpose Family History No Family History Records FoundUnknown Family Member Name Dates Details Family history of diabetes m ellitus: Father, Paternal Grandmother(V18.0, Z83.3) Status:Active Family history of hypertensi on: Maternal Grandmother(V17.49, Z82.49) Status:Active Family history of hyperlipid emia: Mother(V18.19, Z83.438) Status:Active Family history of cardiac di sorder: Paternal Grandmother, Maternal Grandfather, Aunt, Uncle(V17.49, Z82.49) Status:Active Family history of cerebrovas cular accident (CVA): Paternal Grandmother(V17.1, Z82.3) Status:Active Family history of malignant neoplasm: Maternal Grandmother(V16.9, Z80.9) Status:Active Breast carcinoma, female: Tu cabrera Grandmother Status:Active Parkinson disease, symptomat ic: Maternal Grandmother Status:Active Family history of diabetes m ellitus: Father(V18.0, Z83.3) Status:Active Unknown Family Member Name Dates Details Family history of diabetes m ellitus: Father, Paternal Grandmother(V18.0, Z83.3) Status:Active Family history of hypertensi on: Maternal Grandmother(V17.49, Z82.49) Status:Active Family history of hyperlipid emia: Mother(V18.19, Z83.438) Status:Active Family history of cardiac di sorder: Paternal Grandmother, Maternal Grandfather, Aunt, Uncle(V17.49, Z82.49) Status:Active Family history of cerebrovas cular accident (CVA): Paternal Grandmother(V17.1, Z82.3) Status:Active Family history of malignant neoplasm: Maternal Grandmother(V16.9, Z80.9) Status:Active Breast carcinoma, female: Tu monaconal Grandmother Status:Active Parkinson disease, symptomat ic: Maternal Grandmother Status:Active Family history of diabetes m ellitus: Father(V18.0, Z83.3) Status:Active Unknown Family Member Name Dates Details Family history of diabetes m ellitus: Father, Paternal Grandmother(V18.0, Z83.3) Status:Active Family history of hypertensi on: Maternal Grandmother(V17.49, Z82.49) Status:Active Family history of hyperlipid emia: Mother(V18.19, Z83.438) Status:Active Family history of cardiac di sorder: Paternal Grandmother, Maternal Grandfather, Aunt, Uncle(V17.49, Z82.49) Status:Active Family history of cerebrovas cular accident (CVA): Paternal Grandmother(V17.1, Z82.3) Status:Active Family history of malignant neoplasm: Maternal Grandmother(V16.9, Z80.9) Status:Active Breast carcinoma, female: Tu acbrera Grandmother Status:Active Parkinson disease, symptomat ic: Maternal Grandmother Status:Active Family history of diabetes m ellitus: Father(V18.0, Z83.3) Status:Active Unknown Family Member Name Dates Details Family history of diabetes m ellitus: Father, Paternal Grandmother(V18.0, Z83.3) Status:Active Family history of hypertensi on: Maternal Grandmother(V17.49, Z82.49) Status:Active Family history of hyperlipid emia: Mother(V18.19, Z83.438) Status:Active Family history of cardiac di sorder: Paternal Grandmother, Maternal Grandfather, Aunt, Uncle(V17.49, Z82.49) Status:Active Family history of cerebrovas cular accident (CVA): Paternal Grandmother(V17.1, Z82.3) Status:Active Family history of malignant neoplasm: Maternal Grandmother(V16.9, Z80.9) Status:Active Breast carcinoma, female: Tu cabrera Grandmother Status:Active Parkinson disease, symptomat ic: Maternal Grandmother Status:Active Family history of diabetes m ellitus: Father(V18.0, Z83.3) Status:Active Unknown Family Member Name Dates Details Family history of diabetes m ellitus: Father, Paternal Grandmother(V18.0, Z83.3) Status:Active Family history of hypertensi on: Maternal Grandmother(V17.49, Z82.49) Status:Active Family history of hyperlipid emia: Mother(V18.19, Z83.438) Status:Active Family history of cardiac di sorder: Paternal Grandmother, Maternal Grandfather, Aunt, Uncle(V17.49, Z82.49) Status:Active Family history of cerebrovas cular accident (CVA): Paternal Grandmother(V17.1, Z82.3) Status:Active Family history of malignant neoplasm: Maternal Grandmother(V16.9, Z80.9) Status:Active Breast carcinoma, female: Tu ternal Grandmother Status:Active Parkinson disease, symptomat ic: Maternal Grandmother Status:Active Family history of diabetes m ellitus: Father(V18.0, Z83.3) Status:Active Unknown Family Member Name Dates Details Family history of diabetes m ellitus: Father, Paternal Grandmother(V18.0, Z83.3) Status:Active Family history of hypertensi on: Maternal Grandmother(V17.49, Z82.49) Status:Active Family history of hyperlipid emia: Mother(V18.19, Z83.438) Status:Active Family history of cardiac di sorder: Paternal Grandmother, Maternal Grandfather, Aunt, Uncle(V17.49, Z82.49) Status:Active Family history of cerebrovas cular accident (CVA): Paternal Grandmother(V17.1, Z82.3) Status:Active Family history of malignant neoplasm: Maternal Grandmother(V16.9, Z80.9) Status:Active Breast carcinoma, female: Tu cabrera Grandmother Status:Active Parkinson disease, symptomat ic: Maternal Grandmother Status:Active Family history of diabetes m ellitus: Father(V18.0, Z83.3) Status:Active Unknown Family Member Name Dates Details Family history of diabetes m ellitus: Father, Paternal Grandmother(V18.0, Z83.3) Status:Active Family history of hypertensi on: Maternal Grandmother(V17.49, Z82.49) Status:Active Family history of hyperlipid emia: Mother(V18.19, Z83.438) Status:Active Family history of cardiac di sorder: Paternal Grandmother, Maternal Grandfather, Aunt, Uncle(V17.49, Z82.49) Status:Active Family history of cerebrovas cular accident (CVA): Paternal Grandmother(V17.1, Z82.3) Status:Active Family history of malignant neoplasm: Maternal Grandmother(V16.9, Z80.9) Status:Active Breast carcinoma, female: Tu cabrera Grandmother Status:Active Parkinson disease, symptomat ic: Maternal Grandmother Status:Active Family history of diabetes m ellitus: Father(V18.0, Z83.3) Status:Active Unknown Family Member Name Dates Details Family history of diabetes m ellitus: Father, Paternal Grandmother(V18.0, Z83.3) Status:Active Family history of hypertensi on: Maternal Grandmother(V17.49, Z82.49) Status:Active Family history of hyperlipid emia: Mother(V18.19, Z83.438) Status:Active Family history of cardiac di sorder: Paternal Grandmother, Maternal Grandfather, Aunt, Uncle(V17.49, Z82.49) Status:Active Family history of cerebrovas cular accident (CVA): Paternal Grandmother(V17.1, Z82.3) Status:Active Family history of malignant neoplasm: Maternal Grandmother(V16.9, Z80.9) Status:Active Breast carcinoma, female: Tu cabrera Grandmother Status:Active Parkinson disease, symptomat ic: Maternal Grandmother Status:Active Family history of diabetes m ellitus: Father(V18.0, Z83.3) Status:Active Unknown Family Member Name Dates Details Family history of diabetes m ellitus: Father, Paternal Grandmother(V18.0, Z83.3) Status:Active Family history of hypertensi on: Maternal Grandmother(V17.49, Z82.49) Status:Active Family history of hyperlipid emia: Mother(V18.19, Z83.438) Status:Active Family history of cardiac di sorder: Paternal Grandmother, Maternal Grandfather, Aunt, Uncle(V17.49, Z82.49) Status:Active Family history of cerebrovas cular accident (CVA): Paternal Grandmother(V17.1, Z82.3) Status:Active Family history of malignant neoplasm: Maternal Grandmother(V16.9, Z80.9) Status:Active Breast carcinoma, female: Tu cabrera Grandmother Status:Active Parkinson disease, symptomat ic: Maternal Grandmother Status:Active Family history of diabetes m ellitus: Father(V18.0, Z83.3) Status:Active Unknown Family Member Name Dates Details Family history of diabetes m ellitus: Father, Paternal Grandmother(V18.0, Z83.3) Status:Active Family history of hypertensi on: Maternal Grandmother(V17.49, Z82.49) Status:Active Family history of hyperlipid emia: Mother(V18.19, Z83.438) Status:Active Family history of cardiac di sorder: Paternal Grandmother, Maternal Grandfather, Aunt, Uncle(V17.49, Z82.49) Status:Active Family history of cerebrovas cular accident (CVA): Paternal Grandmother(V17.1, Z82.3) Status:Active Family history of malignant neoplasm: Maternal Grandmother(V16.9, Z80.9) Status:Active Breast carcinoma, female: Tu cabrera Grandmother Status:Active Parkinson disease, symptomat ic: Maternal Grandmother Status:Active Family history of diabetes m ellitus: Father(V18.0, Z83.3) Status:Active Unknown Family Member Name Dates Details Family history of diabetes m ellitus: Father, Paternal Grandmother(V18.0, Z83.3) Status:Active Family history of hypertensi on: Maternal Grandmother(V17.49, Z82.49) Status:Active Family history of hyperlipid emia: Mother(V18.19, Z83.438) Status:Active Family history of cardiac di sorder: Paternal Grandmother, Maternal Grandfather, Aunt, Uncle(V17.49, Z82.49) Status:Active Family history of cerebrovas cular accident (CVA): Paternal Grandmother(V17.1, Z82.3) Status:Active Family history of malignant neoplasm: Maternal Grandmother(V16.9, Z80.9) Status:Active Breast carcinoma, female: Tu cabrera Grandmother Status:Active Parkinson disease, symptomat ic: Maternal Grandmother Status:Active Family history of diabetes m ellitus: Father(V18.0, Z83.3) Status:Active Unknown Family Member Name Dates Details Family history of diabetes m ellitus: Father, Paternal Grandmother(V18.0, Z83.3) Status:Active Family history of hypertensi on: Maternal Grandmother(V17.49, Z82.49) Status:Active Family history of hyperlipid emia: Mother(V18.19, Z83.438) Status:Active Family history of cardiac di sorder: Paternal Grandmother, Maternal Grandfather, Aunt, Uncle(V17.49, Z82.49) Status:Active Family history of cerebrovas cular accident (CVA): Paternal Grandmother(V17.1, Z82.3) Status:Active Family history of malignant neoplasm: Maternal Grandmother(V16.9, Z80.9) Status:Active Breast carcinoma, female: Tu cabrera Grandmother Status:Active Parkinson disease, symptomat ic: Maternal Grandmother Status:Active Family history of diabetes m ellitus: Father(V18.0, Z83.3) Status:Active Unknown Family Member Name Dates Details Family history of diabetes m ellitus: Father, Paternal Grandmother(V18.0, Z83.3) Status:Active Family history of hypertensi on: Maternal Grandmother(V17.49, Z82.49) Status:Active Family history of hyperlipid emia: Mother(V18.19, Z83.438) Status:Active Family history of cardiac di sorder: Paternal Grandmother, Maternal Grandfather, Aunt, Uncle(V17.49, Z82.49) Status:Active Family history of cerebrovas cular accident (CVA): Paternal Grandmother(V17.1, Z82.3) Status:Active Family history of malignant neoplasm: Maternal Grandmother(V16.9, Z80.9) Status:Active Breast carcinoma, female: Tu cabrera Grandmother Status:Active Parkinson disease, symptomat ic: Maternal Grandmother Status:Active Family history of diabetes m ellitus: Father(V18.0, Z83.3) Status:Active Unknown Family Member Name Dates Details Family history of diabetes m ellitus: Father, Paternal Grandmother(V18.0, Z83.3) Status:Active Family history of hypertensi on: Maternal Grandmother(V17.49, Z82.49) Status:Active Family history of hyperlipid emia: Mother(V18.19, Z83.438) Status:Active Family history of cardiac di sorder: Paternal Grandmother, Maternal Grandfather, Aunt, Uncle(V17.49, Z82.49) Status:Active Family history of cerebrovas cular accident (CVA): Paternal Grandmother(V17.1, Z82.3) Status:Active Family history of malignant neoplasm: Maternal Grandmother(V16.9, Z80.9) Status:Active Breast carcinoma, female: Tu cabrera Grandmother Status:Active Parkinson disease, symptomat ic: Maternal Grandmother Status:Active Family history of diabetes m ellitus: Father(V18.0, Z83.3) Status:Active Unknown Family Member Name Dates Details Family history of diabetes m ellitus: Father, Paternal Grandmother(V18.0, Z83.3) Status:Active Family history of hypertensi on: Maternal Grandmother(V17.49, Z82.49) Status:Active Family history of hyperlipid emia: Mother(V18.19, Z83.438) Status:Active Family history of cardiac di sorder: Paternal Grandmother, Maternal Grandfather, Aunt, Uncle(V17.49, Z82.49) Status:Active Family history of cerebrovas cular accident (CVA): Paternal Grandmother(V17.1, Z82.3) Status:Active Family history of malignant neoplasm: Maternal Grandmother(V16.9, Z80.9) Status:Active Breast carcinoma, female: Tu cabrera Grandmother Status:Active Parkinson disease, symptomat ic: Maternal Grandmother Status:Active Family history of diabetes m ellitus: Father(V18.0, Z83.3) Status:Active Unknown Family Member Name Dates Details Family history of diabetes m ellitus: Father, Paternal Grandmother(V18.0, Z83.3) Status:Active Family history of hypertensi on: Maternal Grandmother(V17.49, Z82.49) Status:Active Family history of hyperlipid emia: Mother(V18.19, Z83.438) Status:Active Family history of cardiac di sorder: Paternal Grandmother, Maternal Grandfather, Aunt, Uncle(V17.49, Z82.49) Status:Active Family history of cerebrovas cular accident (CVA): Paternal Grandmother(V17.1, Z82.3) Status:Active Family history of malignant neoplasm: Maternal Grandmother(V16.9, Z80.9) Status:Active Breast carcinoma, female: Tu cabrera Grandmother Status:Active Parkinson disease, symptomat ic: Maternal Grandmother Status:Active Family history of diabetes m ellitus: Father(V18.0, Z83.3) Status:Active Unknown Family Member Name Dates Details Family history of diabetes m ellitus: Father, Paternal Grandmother(V18.0, Z83.3) Status:Active Family history of hypertensi on: Maternal Grandmother(V17.49, Z82.49) Status:Active Family history of hyperlipid emia: Mother(V18.19, Z83.438) Status:Active Family history of cardiac di sorder: Paternal Grandmother, Maternal Grandfather, Aunt, Uncle(V17.49, Z82.49) Status:Active Family history of cerebrovas cular accident (CVA): Paternal Grandmother(V17.1, Z82.3) Status:Active Family history of malignant neoplasm: Maternal Grandmother(V16.9, Z80.9) Status:Active Breast carcinoma, female: Tu cabrera Grandmother Status:Active Parkinson disease, symptomat ic: Maternal Grandmother Status:Active Family history of diabetes m ellitus: Father(V18.0, Z83.3) Status:Active Unknown Family Member Name Dates Details Family history of diabetes m ellitus: Father, Paternal Grandmother(V18.0, Z83.3) Status:Active Family history of hypertensi on: Maternal Grandmother(V17.49, Z82.49) Status:Active Family history of hyperlipid emia: Mother(V18.19, Z83.438) Status:Active Family history of cardiac di sorder: Paternal Grandmother, Maternal Grandfather, Aunt, Uncle(V17.49, Z82.49) Status:Active Family history of cerebrovas cular accident (CVA): Paternal Grandmother(V17.1, Z82.3) Status:Active Family history of malignant neoplasm: Maternal Grandmother(V16.9, Z80.9) Status:Active Breast carcinoma, female: Tu cabrera Grandmother Status:Active Parkinson disease, symptomat ic: Maternal Grandmother Status:Active Family history of diabetes m ellitus: Father(V18.0, Z83.3) Status:Active Unknown Family Member Name Dates Details Family history of diabetes m ellitus: Father, Paternal Grandmother(V18.0, Z83.3) Status:Active Family history of hypertensi on: Maternal Grandmother(V17.49, Z82.49) Status:Active Family history of hyperlipid emia: Mother(V18.19, Z83.438) Status:Active Family history of cardiac di sorder: Paternal Grandmother, Maternal Grandfather, Aunt, Uncle(V17.49, Z82.49) Status:Active Family history of cerebrovas cular accident (CVA): Paternal Grandmother(V17.1, Z82.3) Status:Active Family history of malignant neoplasm: Maternal Grandmother(V16.9, Z80.9) Status:Active Breast carcinoma, female: Tu cabrera Grandmother Status:Active Parkinson disease, symptomat ic: Maternal Grandmother Status:Active Family history of diabetes m ellitus: Father(V18.0, Z83.3) Status:Active Unknown Family Member Name Dates Details Family history of diabetes m ellitus: Father, Paternal Grandmother(V18.0, Z83.3) Status:Active Family history of hypertensi on: Maternal Grandmother(V17.49, Z82.49) Status:Active Family history of hyperlipid emia: Mother(V18.19, Z83.438) Status:Active Family history of cardiac di sorder: Paternal Grandmother, Maternal Grandfather, Aunt, Uncle(V17.49, Z82.49) Status:Active Family history of cerebrovas cular accident (CVA): Paternal Grandmother(V17.1, Z82.3) Status:Active Family history of malignant neoplasm: Maternal Grandmother(V16.9, Z80.9) Status:Active Breast carcinoma, female: Tu monaconal Grandmother Status:Active Parkinson disease, symptomat ic: Maternal Grandmother Status:Active Family history of diabetes m ellitus: Father(V18.0, Z83.3) Status:Active Unknown Family Member Name Dates Details Family history of diabetes m ellitus: Father, Paternal Grandmother(V18.0, Z83.3) Status:Active Family history of hypertensi on: Maternal Grandmother(V17.49, Z82.49) Status:Active Family history of hyperlipid emia: Mother(V18.19, Z83.438) Status:Active Family history of cardiac di sorder: Paternal Grandmother, Maternal Grandfather, Aunt, Uncle(V17.49, Z82.49) Status:Active Family history of cerebrovas cular accident (CVA): Paternal Grandmother(V17.1, Z82.3) Status:Active Family history of malignant neoplasm: Maternal Grandmother(V16.9, Z80.9) Status:Active Breast carcinoma, female: Tu cabrera Grandmother Status:Active Parkinson disease, symptomat ic: Maternal Grandmother Status:Active Family history of diabetes m ellitus: Father(V18.0, Z83.3) Status:Active Unknown Family Member Name Dates Details Family history of diabetes m ellitus: Father, Paternal Grandmother(V18.0, Z83.3) Status:Active Family history of hypertensi on: Maternal Grandmother(V17.49, Z82.49) Status:Active Family history of hyperlipid emia: Mother(V18.19, Z83.438) Status:Active Family history of cardiac di sorder: Paternal Grandmother, Maternal Grandfather, Aunt, Uncle(V17.49, Z82.49) Status:Active Family history of cerebrovas cular accident (CVA): Paternal Grandmother(V17.1, Z82.3) Status:Active Family history of malignant neoplasm: Maternal Grandmother(V16.9, Z80.9) Status:Active Breast carcinoma, female: Tu ternal Grandmother Status:Active Parkinson disease, symptomat ic: Maternal Grandmother Status:Active Family history of diabetes m ellitus: Father(V18.0, Z83.3) Status:Active Unknown Family Member Name Dates Details Family history of diabetes m ellitus: Father, Paternal Grandmother(V18.0, Z83.3) Status:Active Family history of hypertensi on: Maternal Grandmother(V17.49, Z82.49) Status:Active Family history of hyperlipid emia: Mother(V18.19, Z83.438) Status:Active Family history of cardiac di sorder: Paternal Grandmother, Maternal Grandfather, Aunt, Uncle(V17.49, Z82.49) Status:Active Family history of cerebrovas cular accident (CVA): Paternal Grandmother(V17.1, Z82.3) Status:Active Family history of malignant neoplasm: Maternal Grandmother(V16.9, Z80.9) Status:Active Breast carcinoma, female: Tu cabrera Grandmother Status:Active Parkinson disease, symptomat ic: Maternal Grandmother Status:Active Family history of diabetes m ellitus: Father(V18.0, Z83.3) Status:Active Unknown Family Member Name Dates Details Family history of diabetes m ellitus: Father, Paternal Grandmother(V18.0, Z83.3) Status:Active Family history of hypertensi on: Maternal Grandmother(V17.49, Z82.49) Status:Active Family history of hyperlipid emia: Mother(V18.19, Z83.438) Status:Active Family history of cardiac di sorder: Paternal Grandmother, Maternal Grandfather, Aunt, Uncle(V17.49, Z82.49) Status:Active Family history of cerebrovas cular accident (CVA): Paternal Grandmother(V17.1, Z82.3) Status:Active Family history of malignant neoplasm: Maternal Grandmother(V16.9, Z80.9) Status:Active Breast carcinoma, female: Tu cabrera Grandmother Status:Active Parkinson disease, symptomat ic: Maternal Grandmother Status:Active Family history of diabetes m ellitus: Father(V18.0, Z83.3) Status:Active Unknown Family Member Name Dates Details Family history of diabetes m ellitus: Father, Paternal Grandmother(V18.0, Z83.3) Status:Active Family history of hypertensi on: Maternal Grandmother(V17.49, Z82.49) Status:Active Family history of hyperlipid emia: Mother(V18.19, Z83.438) Status:Active Family history of cardiac di sorder: Paternal Grandmother, Maternal Grandfather, Aunt, Uncle(V17.49, Z82.49) Status:Active Family history of cerebrovas cular accident (CVA): Paternal Grandmother(V17.1, Z82.3) Status:Active Family history of malignant neoplasm: Maternal Grandmother(V16.9, Z80.9) Status:Active Breast carcinoma, female: Tu ternal Grandmother Status:Active Parkinson disease, symptomat ic: Maternal Grandmother Status:Active Family history of diabetes m ellitus: Father(V18.0, Z83.3) Status:Active Unknown Family Member Name Dates Details Family history of diabetes m ellitus: Father, Paternal Grandmother(V18.0, Z83.3) Status:Active Family history of hypertensi on: Maternal Grandmother(V17.49, Z82.49) Status:Active Family history of hyperlipid emia: Mother(V18.19, Z83.438) Status:Active Family history of cardiac di sorder: Paternal Grandmother, Maternal Grandfather, Aunt, Uncle(V17.49, Z82.49) Status:Active Family history of cerebrovas cular accident (CVA): Paternal Grandmother(V17.1, Z82.3) Status:Active Family history of malignant neoplasm: Maternal Grandmother(V16.9, Z80.9) Status:Active Breast carcinoma, female: Tu cabrera Grandmother Status:Active Parkinson disease, symptomat ic: Maternal Grandmother Status:Active Family history of diabetes m ellitus: Father(V18.0, Z83.3) Status:Active Unknown Family Member Name Dates Details Family history of diabetes m ellitus: Father, Paternal Grandmother(V18.0, Z83.3) Status:Active Family history of hypertensi on: Maternal Grandmother(V17.49, Z82.49) Status:Active Family history of hyperlipid emia: Mother(V18.19, Z83.438) Status:Active Family history of cardiac di sorder: Paternal Grandmother, Maternal Grandfather, Aunt, Uncle(V17.49, Z82.49) Status:Active Family history of cerebrovas cular accident (CVA): Paternal Grandmother(V17.1, Z82.3) Status:Active Family history of malignant neoplasm: Maternal Grandmother(V16.9, Z80.9) Status:Active Breast carcinoma, female: Tu cabrera Grandmother Status:Active Parkinson disease, symptomat ic: Maternal Grandmother Status:Active Family history of diabetes m ellitus: Father(V18.0, Z83.3) Status:Active Unknown Family Member Name Dates Details Family history of diabetes m ellitus: Father, Paternal Grandmother(V18.0, Z83.3) Status:Active Family history of hypertensi on: Maternal Grandmother(V17.49, Z82.49) Status:Active Family history of hyperlipid emia: Mother(V18.19, Z83.438) Status:Active Family history of cardiac di sorder: Paternal Grandmother, Maternal Grandfather, Aunt, Uncle(V17.49, Z82.49) Status:Active Family history of cerebrovas cular accident (CVA): Paternal Grandmother(V17.1, Z82.3) Status:Active Family history of malignant neoplasm: Maternal Grandmother(V16.9, Z80.9) Status:Active Breast carcinoma, female: Tu cabrera Grandmother Status:Active Parkinson disease, symptomat ic: Maternal Grandmother Status:Active Family history of diabetes m ellitus: Father(V18.0, Z83.3) Status:Active Unknown Family Member Name Dates Details Family history of hyperlipid emia: Mother(V18.19, Z83.438) Status:Active Family history of diabetes m ellitus: Father(V18.0, Z83.3) Status:Active Parkinson disease, symptomat ic: Maternal Grandmother Status:Active Breast carcinoma, female: Tu ternal Grandmother Status:Active Family history of malignant neoplasm: Maternal Grandmother(V16.9, Z80.9) Status:Active Family history of cerebrovas cular accident (CVA): Paternal Grandmother(V17.1, Z82.3) Status:Active Family history of cardiac di sorder: Paternal Grandmother, Maternal Grandfather, Aunt, Uncle(V17.49, Z82.49) Status:Active Family history of hypertensi on: Maternal Grandmother(V17.49, Z82.49) Status:Active Family history of diabetes m ellitus: Father, Paternal Grandmother(V18.0, Z83.3) Status:Active Unknown Family Member Name Dates Details Family history of hyperlipid emia: Mother(V18.19, Z83.438) Status:Active Family history of diabetes m ellitus: Father(V18.0, Z83.3) Status:Active Parkinson disease, symptomat ic: Maternal Grandmother Status:Active Breast carcinoma, female: Tu cabrera Grandmother Status:Active Family history of malignant neoplasm: Maternal Grandmother(V16.9, Z80.9) Status:Active Family history of cerebrovas cular accident (CVA): Paternal Grandmother(V17.1, Z82.3) Status:Active Family history of cardiac di sorder: Paternal Grandmother, Maternal Grandfather, Aunt, Uncle(V17.49, Z82.49) Status:Active Family history of hypertensi on: Maternal Grandmother(V17.49, Z82.49) Status:Active Family history of diabetes m ellitus: Father, Paternal Grandmother(V18.0, Z83.3) Status:Active Unknown Family Member Name Dates Details Family history of diabetes m ellitus: Father(V18.0, Z83.3) Status:Active Family history of hyperlipid emia: Mother(V18.19, Z83.438) Status:Active Parkinson disease, symptomat ic: Maternal Grandmother Status:Active Breast carcinoma, female: Tu cabrera Grandmother Status:Active Family history of malignant neoplasm: Maternal Grandmother(V16.9, Z80.9) Status:Active Family history of cerebrovas cular accident (CVA): Paternal Grandmother(V17.1, Z82.3) Status:Active Family history of cardiac di sorder: Paternal Grandmother, Maternal Grandfather, Aunt, Uncle(V17.49, Z82.49) Status:Active Family history of hypertensi on: Maternal Grandmother(V17.49, Z82.49) Status:Active Family history of diabetes m ellitus: Father, Paternal Grandmother(V18.0, Z83.3) Status:Active Unknown Family Member Name Dates Details Family history of diabetes m ellitus: Father(V18.0, Z83.3) Status:Active Family history of hyperlipid emia: Mother(V18.19, Z83.438) Status:Active Parkinson disease, symptomat ic: Maternal Grandmother Status:Active Breast carcinoma, female: Tu cabrera Grandmother Status:Active Family history of malignant neoplasm: Maternal Grandmother(V16.9, Z80.9) Status:Active Family history of cerebrovas cular accident (CVA): Paternal Grandmother(V17.1, Z82.3) Status:Active Family history of cardiac di sorder: Paternal Grandmother, Maternal Grandfather, Aunt, Uncle(V17.49, Z82.49) Status:Active Family history of hypertensi on: Maternal Grandmother(V17.49, Z82.49) Status:Active Family history of diabetes m ellitus: Father, Paternal Grandmother(V18.0, Z83.3) Status:Active Unknown Family Member Name Dates Details Family history of diabetes m ellitus: Father, Paternal Grandmother(V18.0, Z83.3) Status:Active Family history of hypertensi on: Maternal Grandmother(V17.49, Z82.49) Status:Active Family history of hyperlipid emia: Mother(V18.19, Z83.438) Status:Active Family history of cardiac di sorder: Paternal Grandmother, Maternal Grandfather, Aunt, Uncle(V17.49, Z82.49) Status:Active Family history of cerebrovas cular accident (CVA): Paternal Grandmother(V17.1, Z82.3) Status:Active Family history of malignant neoplasm: Maternal Grandmother(V16.9, Z80.9) Status:Active Breast carcinoma, female: Tu cabrera Grandmother Status:Active Parkinson disease, symptomat ic: Maternal Grandmother Status:Active Family history of diabetes m ellitus: Father(V18.0, Z83.3) Status:Active Unknown Family Member Name Dates Details Family history of diabetes m ellitus: Father, Paternal Grandmother(V18.0, Z83.3) Status:Active Family history of hypertensi on: Maternal Grandmother(V17.49, Z82.49) Status:Active Family history of hyperlipid emia: Mother(V18.19, Z83.438) Status:Active Family history of cardiac di sorder: Paternal Grandmother, Maternal Grandfather, Aunt, Uncle(V17.49, Z82.49) Status:Active Family history of cerebrovas cular accident (CVA): Paternal Grandmother(V17.1, Z82.3) Status:Active Family history of malignant neoplasm: Maternal Grandmother(V16.9, Z80.9) Status:Active Breast carcinoma, female: Tu cabrera Grandmother Status:Active Parkinson disease, symptomat ic: Maternal Grandmother Status:Active Family history of diabetes m ellitus: Father(V18.0, Z83.3) Status:Active Unknown Family Member Name Dates Details Family history of hyperlipid emia: Mother(V18.19, Z83.438) Status:Active Family history of diabetes m ellitus: Father(V18.0, Z83.3) Status:Active Parkinson disease, symptomat ic: Maternal Grandmother Status:Active Breast carcinoma, female: Tu cabrera Grandmother Status:Active Family history of malignant neoplasm: Maternal Grandmother(V16.9, Z80.9) Status:Active Family history of cerebrovas cular accident (CVA): Paternal Grandmother(V17.1, Z82.3) Status:Active Family history of cardiac di sorder: Paternal Grandmother, Maternal Grandfather, Aunt, Uncle(V17.49, Z82.49) Status:Active Family history of hypertensi on: Maternal Grandmother(V17.49, Z82.49) Status:Active Family history of diabetes m ellitus: Father, Paternal Grandmother(V18.0, Z83.3) Status:Active Unknown Family Member Name Dates Details Family history of diabetes m ellitus: Father(V18.0, Z83.3) Status:Active Family history of hyperlipid emia: Mother(V18.19, Z83.438) Status:Active Parkinson disease, symptomat ic: Maternal Grandmother Status:Active Breast carcinoma, female: Tu cabrera Grandmother Status:Active Family history of malignant neoplasm: Maternal Grandmother(V16.9, Z80.9) Status:Active Family history of cerebrovas cular accident (CVA): Paternal Grandmother(V17.1, Z82.3) Status:Active Family history of cardiac di sorder: Paternal Grandmother, Maternal Grandfather, Aunt, Uncle(V17.49, Z82.49) Status:Active Family history of hypertensi on: Maternal Grandmother(V17.49, Z82.49) Status:Active Family history of diabetes m ellitus: Father, Paternal Grandmother(V18.0, Z83.3) Status:Active Unknown Family Member Name Dates Details Family history of diabetes m ellitus: Father, Paternal Grandmother(V18.0, Z83.3) Status:Active Family history of hypertensi on: Maternal Grandmother(V17.49, Z82.49) Status:Active Family history of hyperlipid emia: Mother(V18.19, Z83.438) Status:Active Family history of cardiac di sorder: Paternal Grandmother, Maternal Grandfather, Aunt, Uncle(V17.49, Z82.49) Status:Active Family history of cerebrovas cular accident (CVA): Paternal Grandmother(V17.1, Z82.3) Status:Active Family history of malignant neoplasm: Maternal Grandmother(V16.9, Z80.9) Status:Active Breast carcinoma, female: Tu cabrera Grandmother Status:Active Parkinson disease, symptomat ic: Maternal Grandmother Status:Active Family history of diabetes m ellitus: Father(V18.0, Z83.3) Status:Active Unknown Family Member Name Dates Details Family history of diabetes m ellitus: Father(V18.0, Z83.3) Status:Active Family history of hyperlipid emia: Mother(V18.19, Z83.438) Status:Active Parkinson disease, symptomat ic: Maternal Grandmother Status:Active Breast carcinoma, female: Tu ternal Grandmother Status:Active Family history of malignant neoplasm: Maternal Grandmother(V16.9, Z80.9) Status:Active Family history of cerebrovas cular accident (CVA): Paternal Grandmother(V17.1, Z82.3) Status:Active Family history of cardiac di sorder: Paternal Grandmother, Maternal Grandfather, Aunt, Uncle(V17.49, Z82.49) Status:Active Family history of hypertensi on: Maternal Grandmother(V17.49, Z82.49) Status:Active Family history of diabetes m ellitus: Father, Paternal Grandmother(V18.0, Z83.3) Status:Active Unknown Family Member Name Dates Details Family history of diabetes m ellitus: Father(V18.0, Z83.3) Status:Active Family history of hyperlipid emia: Mother(V18.19, Z83.438) Status:Active Parkinson disease, symptomat ic: Maternal Grandmother Status:Active Breast carcinoma, female: Tu cabrera Grandmother Status:Active Family history of malignant neoplasm: Maternal Grandmother(V16.9, Z80.9) Status:Active Family history of cerebrovas cular accident (CVA): Paternal Grandmother(V17.1, Z82.3) Status:Active Family history of cardiac di sorder: Paternal Grandmother, Maternal Grandfather, Aunt, Uncle(V17.49, Z82.49) Status:Active Family history of hypertensi on: Maternal Grandmother(V17.49, Z82.49) Status:Active Family history of diabetes m ellitus: Father, Paternal Grandmother(V18.0, Z83.3) Status:Active Unknown Family Member Name Dates Details Family history of diabetes m ellitus: Father, Paternal Grandmother(V18.0, Z83.3) Status:Active Family history of hypertensi on: Maternal Grandmother(V17.49, Z82.49) Status:Active Family history of hyperlipid emia: Mother(V18.19, Z83.438) Status:Active Family history of cardiac di sorder: Paternal Grandmother, Maternal Grandfather, Aunt, Uncle(V17.49, Z82.49) Status:Active Family history of cerebrovas cular accident (CVA): Paternal Grandmother(V17.1, Z82.3) Status:Active Family history of malignant neoplasm: Maternal Grandmother(V16.9, Z80.9) Status:Active Breast carcinoma, female: Tu cabrera Grandmother Status:Active Parkinson disease, symptomat ic: Maternal Grandmother Status:Active Family history of diabetes m ellitus: Father(V18.0, Z83.3) Status:Active Unknown Family Member Name Dates Details Family history of diabetes m ellitus: Father, Paternal Grandmother(V18.0, Z83.3) Status:Active Family history of hypertensi on: Maternal Grandmother(V17.49, Z82.49) Status:Active Family history of hyperlipid emia: Mother(V18.19, Z83.438) Status:Active Family history of cardiac di sorder: Paternal Grandmother, Maternal Grandfather, Aunt, Uncle(V17.49, Z82.49) Status:Active Family history of cerebrovas cular accident (CVA): Paternal Grandmother(V17.1, Z82.3) Status:Active Family history of malignant neoplasm: Maternal Grandmother(V16.9, Z80.9) Status:Active Breast carcinoma, female: Tu cabrera Grandmother Status:Active Parkinson disease, symptomat ic: Maternal Grandmother Status:Active Family history of diabetes m ellitus: Father(V18.0, Z83.3) Status:Active Unknown Family Member Name Dates Details Family history of hyperlipid emia: Mother(V18.19, Z83.438) Status:Active Family history of diabetes m ellitus: Father(V18.0, Z83.3) Status:Active Parkinson disease, symptomat ic: Maternal Grandmother Status:Active Breast carcinoma, female: Tu cabrera Grandmother Status:Active Family history of malignant neoplasm: Maternal Grandmother(V16.9, Z80.9) Status:Active Family history of cerebrovas cular accident (CVA): Paternal Grandmother(V17.1, Z82.3) Status:Active Family history of cardiac di sorder: Paternal Grandmother, Maternal Grandfather, Aunt, Uncle(V17.49, Z82.49) Status:Active Family history of hypertensi on: Maternal Grandmother(V17.49, Z82.49) Status:Active Family history of diabetes m ellitus: Father, Paternal Grandmother(V18.0, Z83.3) Status:Active Unknown Family Member Name Dates Details Family history of diabetes m ellitus: Father, Paternal Grandmother(V18.0, Z83.3) Status:Active Family history of hypertensi on: Maternal Grandmother(V17.49, Z82.49) Status:Active Family history of hyperlipid emia: Mother(V18.19, Z83.438) Status:Active Family history of cardiac di sorder: Paternal Grandmother, Maternal Grandfather, Aunt, Uncle(V17.49, Z82.49) Status:Active Family history of cerebrovas cular accident (CVA): Paternal Grandmother(V17.1, Z82.3) Status:Active Family history of malignant neoplasm: Maternal Grandmother(V16.9, Z80.9) Status:Active Breast carcinoma, female: Tu cabrera Grandmother Status:Active Parkinson disease, symptomat ic: Maternal Grandmother Status:Active Family history of diabetes m ellitus: Father(V18.0, Z83.3) Status:Active Advance Directives No Advanced Directives Records FoundNo Advanced Directives Records FoundNo Advanced Directives Records FoundNo Advanced Directives Records FoundNo Advanced Directives Records FoundNo Advanced Directives Records FoundNo Advanced Directives Records FoundNo Advanced Directives Records FoundNo Advanced Directives Records FoundNo Advanced Directives Records Found Chief Complaint establish care. Joint pain for a while. In the last month had stabbing pain in hip it went down leginto foot. Foot went numb on and off. Chiropractor adjusted and made pain worse. Said 4 vertebrae that were damaged. No radiology testing doneestablish care. Joint pain for a while. In the last month had stabbing pain in hip it went down leginto foot. Foot went numb on and off. Chiropractor adjusted and made pain worse. Said 4 vertebrae that were damaged. No radiology testing doneestablish care. Joint pain for a while. In the last month had stabbing pain in hip it went down leginto foot. Foot went numb on and off. Chiropractor adjusted and made pain worse. Said 4 vertebrae that were damaged. No radiology testing done1 month check with labs and xray. Discuss rheumatologisthad covid early January. Started getting dizzy and nausea, has to lay down to feel better. Wondering about POTS?had covid early January. Started getting dizzy and nausea, has to lay down to feel better. Wondering about POTS?6 month check. Recently dx vasovagal syncope/pots also inflammatory polyarthropathy,generalized hypermobility of joints6 month check. Recently dx vasovagal syncope/pots also inflammatory polyarthropathy,generalized hype rmobility of jointsNew patient visitNew patient visitNPV in office for constipation. Patient diagnoses with EDS/ POTS. Patient states that she has had bloating and constipation for several years. Patient has tried probiotic yogurt, magnesium citrate, turmeric, BM approx every 4 days. Eats one meal a day at night due to the severe bloating. Patient states if she eats a big meal or a small meal she still has the severe bloating. Genetic doctor wantedpatient to be seen here thinking patient may have gastroparesis. Patient does not have the vomiting, has occasional nausea. No prior EGD or colonoscopy Additional Source Comments INFORMATION SOURCE (unrecogn ized section and content) DATE CREATED AUTHOR AUTHOR'S ORGANIZ ATION 05/31/2022 [facility] DATE CREATED AUTHOR AUTHOR'S ORGANIZ ATION 06/09/2022 [facility] DATE CREATED AUTHOR AUTHOR'S ORGANIZ ATION 12/19/2022 [facility] DATE CREATED AUTHOR AUTHOR'S ORGANIZ ATION 12/24/2022 [facility] DATE CREATED AUTHOR AUTHOR'S ORGANIZ ATION 12/25/2022 [facility] DATE CREATED AUTHOR AUTHOR'S ORGANIZ ATION 03/01/2023 [facility] DATE CREATED AUTHOR AUTHOR'S ORGANIZ ATION 03/03/2023 [employer] DATE CREATED AUTHOR AUTHOR'S ORGANIZ ATION 04/29/2023 [facility] DATE CREATED AUTHOR AUTHOR'S ORGANIZ ATION 08/23/2023 [facility] Source Comments (unrecognize d section and content) In the event this informatio n is protected by the Federal Confidentiality of Alcohol and Drug Abuse Patient Records regulations: The Federal rules restrict any use of the information to criminally investigate or prosecute any alcohol or drug abuse patient.[facility] Reason for Visit (unrecogniz ed section and content) Reason Comments Follow-up Palpitations, SOB ge tting better, lightheaded, dizzy Reason Comments Shoulder Pain Reason Comments Other Irritable bowel synd katja with constipation Care Teams (unrecognized sec tion and content) [employer] Operator Concentrate Relationship Specialty Start Date End Date Bony Connell DO [address] [facility] [address] [place] [address] PCP - General Family Medicine 04/26/22 [employer] Operator Concentrate Relationship Specialty Start Date End Date Bony Connell DO [address] [address] PCP - General 11/28/21 Bony Connell DO [address] [address] PCP - [place] RABAGO PCP 02/06/22 Premix Operator Concentrate Relationship Specialty Start Date End Date Bony Connell DO [address] [address] PCP - General 11/28/21 Bony Connell DO [address] [address] PCP - [place] RABAGO PCP 02/06/22 Premix Operator Concentrate Relationship Specialty Start Date End Date Bony Connell DO [address] [facility] [address] [place] [address] PCP - General 11/28/21 Bony Connell DO [address] [facility] [address] [place] [address] PCP - [place] RABAGO PCP 02/06/22 Premix Operator Concentrate Relationship Specialty Start Date End Date ConnellBony DO [address] [facility] [address] [place] [address] PCP - General 11/28/21 Bony Connell DO [address] [facility] [place] [address] PCP - [place] RABAGO PCP 02/06/22 Scheduled Active and Recently Administ ered Medications (unrecognized section and content) FOR RECORDS PERTAINING TO PATIENTS WHO ARE OR HAVE BEEN ENROLLED IN A CHEMICAL DEPENDENCY/SUBSTANCEABUSE PROGRAM, SOME INFORMATION MAY BE OMITTED. This clinical summary was aggregated from multiple sources. Caution should be exercised in using it in the provision of clinical care. This summary normalizes information from multiple sources, and as a consequence, information in this document may materially change the coding, format and clinical context of patient data. In addition, data may be omitted in some cases. CLINICAL DECISIONS SHOULD BE BASED ON THE PRIMARY CLINICAL RECORDS. [employer] [facility]. provides no warranty or guarantee of the accuracy or completeness of information in this document.
== END | disposition home or self-care (01) ==
PROVIDERS: PCP Student in an Organized Health Care Education/Training Program; Referring Provider Internal Medicine Rheumatology; Visit Provider Internal Medicine Rheumatology
DX: M06.4 Inflammatory polyarthropathy (principal); Z79.899 Other long term (current) drug therapy
CPT/HCPCS: 36415; 80053; 85025

== ENCOUNTER → 2023-10-26 | Outpatient (CLI) | payer BC, SELFPAY ==
[2023-10-26 17:59] LABS: Absolute Lymphocyte Count 1.67 X10^3/uL (0.83-4.51); Absolute Neutrophil Count 3.3 X10^3/uL (2.0-7.7); Basophil# 0.04 X10^3/uL; Basophil% 0.7 % (0-1); Eosinophil# 0.19 X10^3/uL; Eosinophils% 3.4 % (0-5); Hematocrit 37.5 % (37-47); Hemoglobin 12.7 g/dL (12.0-15.0); Lymphocyte # 1.67 X10^3/ul (0.83-4.51); Lymphocyte % 29.5 % (19-41); Mean Corp Hgb Conc 33.9 g/dL (32-36); Mean Corpuscular Hgb 32.2 pg (27.0-32.0); Mean Corpuscular Volume 94.9 fL (81-99); Mean Platelet Vol. 11.7 fl (6.2-12.0); Monocyte# 0.46 X10^3/uL; Monocyte% 8.1 % (0-10); NRBC Flagged by Analyzer 0 % (0-5); Neutrophil # 3.29 X10^3/uL (2.7-7.7); Neutrophil % 57.9 % (47-70); Platelet Count 251 K/mm3 (150-450); RBC Distribution Width CV 13.1 % (11.6-14.6); RBC Distribution Width SD 45.3 fl (35.1-43.9); Red Blood Count 3.95 M/mm3 (4.2-5.4); White Blood Count 5.7 K/mm3 (4.4-11.0)
[2023-10-26 18:35] LABS: ALB/GLOB Ratio 1.2 RATIO (0.9-2.4); AST(SGOT) 25 U/L (15-37); Alanine Aminotransfer ALT/SGPT 32 U/L (13-56); Albumin, Serum 3.7 g/dL (3.2-5.0); Alkaline Phosphatase 53 U/L (45-117); Anion Gap 6 (5-15); BUN 11 mg/dL (7-18); BUN/Creat Ratio 11.7 RATIO (10-20); Calcium,Total 8.7 mg/dL (8.5-10.1); Chloride 109 mmol/L (98-107); Creatinine, Serum 0.94 mg/dL (0.55-1.02); EST Glomerular Filtration Rate 72 mL/min (>60); Est Glom Filt Rate - Afr Amer 87 mL/min (>60); Globulin 3.2 g/dL (2.2-4.2); Glucose 95 mg/dL (74-106); Protein, Total 6.9 g/dL (6.4-8.2); Sodium Level 139 mmol/L (136-145)
== END | disposition home or self-care (01) ==
LOC: MTLAB 14:59
PROVIDERS: PCP Student in an Organized Health Care Education/Training Program; Referring Provider Internal Medicine Rheumatology; Visit Provider Internal Medicine Rheumatology
DX: M06.4 Inflammatory polyarthropathy (principal); Z79.899 Other long term (current) drug therapy; Q79.62 Hypermobile Ehlers-Danlos syndrome; F41.9 Anxiety disorder, unspecified; F32.A Depression, unspecified; E78.5 Hyperlipidemia, unspecified; G90.A Postural orthostatic tachycardia syndrome [POTS]; R55 Syncope and collapse
CPT/HCPCS: 36415; 80053; 85025

== ENCOUNTER → 2024-01-28 | Outpatient (CLI) | payer BC, SELFPAY ==
[2024-01-28 15:15] LABS: Absolute Lymphocyte Count 2.31 X10^3/uL (0.83-4.51); Absolute Neutrophil Count 2.8 X10^3/uL (2.0-7.7); Basophil# 0.06 X10^3/uL; Eosinophils% 3.3 % (0-5); Hematocrit 37.9 % (37-47); Hemoglobin 12.4 g/dL (12.0-15.0); Lymphocyte # 2.31 X10^3/ul (0.83-4.51); Lymphocyte % 38.4 % (19-41); Mean Corp Hgb Conc 32.7 g/dL (32-36); Mean Corpuscular Hgb 31.4 pg (27.0-32.0); Mean Corpuscular Volume 95.9 fL (81-99); Mean Platelet Vol. 12.2 fl (6.2-12.0); NRBC Flagged by Analyzer 0 % (0-5); Neutrophil # 2.84 X10^3/uL (2.7-7.7); Neutrophil % 47.1 % (47-70); Platelet Count 252 K/mm3 (150-450); RBC Distribution Width CV 13.2 % (11.6-14.6); RBC Distribution Width SD 46.9 fl (35.1-43.9); Red Blood Count 3.95 M/mm3 (4.2-5.4)
[2024-01-28 15:44] LABS: AST(SGOT) 17 U/L (15-37); Alanine Aminotransfer ALT/SGPT 26 U/L (13-56); Albumin, Serum 3.3 g/dL (3.2-5.0); Alkaline Phosphatase 57 U/L (45-117); Anion Gap 5 (5-15); BUN 8 mg/dL (7-18); BUN/Creat Ratio 8.4 RATIO (10-20); Calcium,Total 8.5 mg/dL (8.5-10.1); Chloride 105 mmol/L (98-107); Creatinine, Serum 0.96 mg/dL (0.55-1.02); EST Glomerular Filtration Rate 71 mL/min (>60); Est Glom Filt Rate - Afr Amer 86 mL/min (>60); Globulin 3.3 g/dL (2.2-4.2); Glucose 90 mg/dL (74-106); Potassium 4.1 mmol/L (3.5-5.1); Protein, Total 6.6 g/dL (6.4-8.2); Sodium Level 137 mmol/L (136-145)
== END | disposition home or self-care (01) ==
LOC: MTLAB 11:01
PROVIDERS: PCP Student in an Organized Health Care Education/Training Program; Referring Provider Internal Medicine Rheumatology; Visit Provider Internal Medicine Rheumatology
DX: M06.4 Inflammatory polyarthropathy (principal); Z79.899 Other long term (current) drug therapy
CPT/HCPCS: 36415; 80053; 85025

== ENCOUNTER → 2024-03-28 | Outpatient (CLI) | payer BC, SELFPAY ==
[2024-03-28 15:16] LABS: Absolute Lymphocyte Count 1.33 X10^3/uL (0.83-4.51); Absolute Neutrophil Count 7.4 X10^3/uL (2.0-7.7); Basophil# 0.03 X10^3/uL; Basophil% 0.3 % (0-1); Eosinophil# 0.05 X10^3/uL; Eosinophils% 0.5 % (0-5); Hemoglobin 13.6 g/dL (12.0-15.0); Lymphocyte # 1.33 X10^3/ul (0.83-4.51); Lymphocyte % 14.2 % (19-41); Mean Corp Hgb Conc 32.4 g/dL (32-36); Mean Corpuscular Hgb 31.3 pg (27.0-32.0); Mean Corpuscular Volume 96.8 fL (81-99); Monocyte# 0.46 X10^3/uL; Monocyte% 4.9 % (0-10); NRBC Flagged by Analyzer 0 % (0-5); Neutrophil # 7.44 X10^3/uL (2.7-7.7); Neutrophil % 79.8 % (47-70); Platelet Count 268 K/mm3 (150-450); RBC Distribution Width CV 13.1 % (11.6-14.6); RBC Distribution Width SD 46.5 fl (35.1-43.9); Red Blood Count 4.34 M/mm3 (4.2-5.4); White Blood Count 9.3 K/mm3 (4.4-11.0)
[2024-03-28 15:43] LABS: ALB/GLOB Ratio 1.1 RATIO (0.9-2.4); AST(SGOT) 28 U/L (15-37); Alanine Aminotransfer ALT/SGPT 31 U/L (13-56); Alkaline Phosphatase 63 U/L (45-117); Anion Gap 5 (5-15); BUN 10 mg/dL (7-18); Calcium,Total 9.7 mg/dL (8.5-10.1); Chloride 107 mmol/L (98-107); EST Glomerular Filtration Rate 67 mL/min (>60); Est Glom Filt Rate - Afr Amer 81 mL/min (>60); Globulin 3.7 g/dL (2.2-4.2); Glucose 105 mg/dL (74-106); Potassium 4.2 mmol/L (3.5-5.1); Protein, Total 7.7 g/dL (6.4-8.2); Sodium Level 138 mmol/L (136-145)
== END | disposition home or self-care (01) ==
LOC: MTLAB 11:52
PROVIDERS: PCP Student in an Organized Health Care Education/Training Program; Referring Provider Internal Medicine Rheumatology; Visit Provider Internal Medicine Rheumatology
DX: M06.4 Inflammatory polyarthropathy (principal); Z79.899 Other long term (current) drug therapy; Q79.62 Hypermobile Ehlers-Danlos syndrome
CPT/HCPCS: 36415; 80053; 85025

== ENCOUNTER → 2024-06-23 | Outpatient (CLI) | payer BC, SELFPAY ==
[2024-06-23 15:08] LABS: Absolute Lymphocyte Count 1.78 X10^3/uL (0.83-4.51); Basophil# 0.05 X10^3/uL; Basophil% 0.9 % (0-1); Eosinophil# 0.19 X10^3/uL; Eosinophils% 3.4 % (0-5); Hematocrit 36.2 % (37-47); Hemoglobin 12.2 g/dL (12.0-15.0); Lymphocyte # 1.78 X10^3/ul (0.83-4.51); Lymphocyte % 32.1 % (19-41); Mean Corp Hgb Conc 33.7 g/dL (32-36); Mean Corpuscular Hgb 32.6 pg (27.0-32.0); Mean Corpuscular Volume 96.8 fL (81-99); Mean Platelet Vol. 11.7 fl (6.2-12.0); Monocyte# 0.51 X10^3/uL; Monocyte% 9.2 % (0-10); NRBC Flagged by Analyzer 0 % (0-5); Neutrophil % 54.2 % (47-70); Platelet Count 230 K/mm3 (150-450); RBC Distribution Width CV 12.9 % (11.6-14.6); RBC Distribution Width SD 46.1 fl (35.1-43.9); Red Blood Count 3.74 M/mm3 (4.2-5.4); White Blood Count 5.5 K/mm3 (4.4-11.0)
[2024-06-23 15:38] LABS: ALB/GLOB Ratio 1.1 RATIO (0.9-2.4); AST(SGOT) 21 U/L (15-37); Alanine Aminotransfer ALT/SGPT 24 U/L (13-56); Albumin, Serum 3.3 g/dL (3.2-5.0); Alkaline Phosphatase 48 U/L (45-117); Anion Gap 5 (5-15); BUN 10 mg/dL (7-18); BUN/Creat Ratio 10.4 RATIO (10-20); Calcium,Total 8.6 mg/dL (8.5-10.1); Chloride 107 mmol/L (98-107); Creatinine, Serum 0.96 mg/dL (0.55-1.02); EST Glomerular Filtration Rate 70 mL/min (>60); Est Glom Filt Rate - Afr Amer 85 mL/min (>60); Glucose 80 mg/dL (74-106); Potassium 4.4 mmol/L (3.5-5.1); Protein, Total 6.3 g/dL (6.4-8.2); Sodium Level 138 mmol/L (136-145)
== END | disposition home or self-care (01) ==
PROVIDERS: PCP Student in an Organized Health Care Education/Training Program; Referring Provider Internal Medicine Rheumatology; Visit Provider Internal Medicine Rheumatology
DX: M06.4 Inflammatory polyarthropathy (principal); Z79.899 Other long term (current) drug therapy
CPT/HCPCS: 36415; 80053; 85025

== ENCOUNTER → 2024-09-16 | Outpatient (CLI) | payer BC, SELFPAY ==
[2024-09-16 17:48] LABS: Absolute Neutrophil Count 5.7 X10^3/uL (2.0-7.7); Basophil# 0.06 X10^3/uL; Basophil% 0.7 % (0-1); Eosinophil# 0.11 X10^3/uL; Eosinophils% 1.4 % (0-5); Hematocrit 40.7 % (37-47); Hemoglobin 14.2 g/dL (12.0-15.0); Mean Corp Hgb Conc 34.9 g/dL (32-36); Mean Corpuscular Hgb 32.8 pg (27.0-32.0); Mean Platelet Vol. 11.2 fl (6.2-12.0); Monocyte% 6.2 % (0-10); NRBC Flagged by Analyzer 0 % (0-5); Neutrophil # 5.71 X10^3/uL (2.7-7.7); Neutrophil % 70.6 % (47-70); Platelet Count 251 K/mm3 (150-450); RBC Distribution Width CV 12.7 % (11.6-14.6); Red Blood Count 4.33 M/mm3 (4.2-5.4); White Blood Count 8.1 K/mm3 (4.4-11.0)
[2024-09-16 20:22] LABS: ALB/GLOB Ratio 1.6 RATIO (0.9-2.4); AST(SGOT) 27 U/L (<=31); Alanine Aminotransfer ALT/SGPT 23 U/L (<=34); Albumin, Serum 4.4 g/dL (3.5-5.0); Alkaline Phosphatase 53 U/L (35-104); Anion Gap 13 (5-15); BUN 12 mg/dL (4-19); BUN/Creat Ratio 12.8 RATIO (10-20); Calcium,Total 9.4 mg/dL (7.6-11.0); Carbon Dioxide 21.2 mmol/L (21.0-32.0); Chloride 102 mmol/L (98-108); Creatinine, Serum 0.91 mg/dL (0.70-1.20); EST Glomerular Filtration Rate 84 (>60); Globulin 2.8 g/dL (2.2-4.2); Glucose 115 mg/dL (70-99); Potassium 4.1 mmol/L (3.3-5.1); Protein, Total 7.2 g/dL (5.9-8.4); Sodium Level 136 mmol/L (133-145); Total Bilirubin 0.64 mg/dL (0.00-1.30)
== END | disposition home or self-care (01) ==
LOC: MTLAB 15:34
PROVIDERS: PCP Student in an Organized Health Care Education/Training Program; Referring Provider Internal Medicine Rheumatology; Visit Provider Internal Medicine Rheumatology
DX: M06.4 Inflammatory polyarthropathy (principal); Z79.899 Other long term (current) drug therapy; Q79.62 Hypermobile Ehlers-Danlos syndrome
CPT/HCPCS: 36415; 80053; 85025

== ENCOUNTER → 2024-12-25 | Outpatient (CLI) | payer BC, SELFPAY ==
[2024-12-25 17:31] LABS: Absolute Lymphocyte Count 1.68 X10^3/uL (0.83-4.51); Absolute Neutrophil Count 4.5 X10^3/uL (2.0-7.7); Basophil# 0.04 X10^3/uL; Basophil% 0.6 % (0-1); Eosinophil# 0.18 X10^3/uL; Eosinophils% 2.6 % (0-5); Hematocrit 42.8 % (37-47); Hemoglobin 14.8 g/dL (12.0-15.0); Lymphocyte # 1.68 X10^3/ul (0.83-4.51); Lymphocyte % 24.2 % (19-41); Mean Corp Hgb Conc 34.6 g/dL (32-36); Mean Corpuscular Hgb 33.4 pg (27.0-32.0); Mean Corpuscular Volume 96.6 fL (81-99); Mean Platelet Vol. 11.1 fl (6.2-12.0); Monocyte# 0.52 X10^3/uL; Monocyte% 7.5 % (0-10); NRBC Flagged by Analyzer 0 % (0-5); Neutrophil % 64.8 % (47-70); Platelet Count 268 K/mm3 (150-450); RBC Distribution Width CV 12.4 % (11.6-14.6); RBC Distribution Width SD 44.7 fl (35.1-43.9); Red Blood Count 4.43 M/mm3 (4.2-5.4); White Blood Count 6.9 K/mm3 (4.4-11.0)
[2024-12-25 17:48] LABS: ALB/GLOB Ratio 1.6 RATIO (0.9-2.4); AST(SGOT) 26 U/L (<=31); Alanine Aminotransfer ALT/SGPT 17 U/L (<=34); Albumin, Serum 4.5 g/dL (3.5-5.0); Alkaline Phosphatase 61 U/L (35-104); Anion Gap 12 (5-15); BUN 11 mg/dL (4-19); BUN/Creat Ratio 12.1 RATIO (10-20); Calcium,Total 9.1 mg/dL (7.6-11.0); Carbon Dioxide 23.9 mmol/L (21.0-32.0); Chloride 100 mmol/L (98-108); Creatinine, Serum 0.87 mg/dL (0.70-1.20); EST Glomerular Filtration Rate 90 (>60); Globulin 2.8 g/dL (2.2-4.2); Glucose 87 mg/dL (70-99); Potassium 4.4 mmol/L (3.3-5.1); Protein, Total 7.2 g/dL (5.9-8.4); Sodium Level 136 mmol/L (133-145); Total Bilirubin 0.35 mg/dL (0.00-1.30)
== END | disposition home or self-care (01) ==
LOC: MTLAB 14:15
PROVIDERS: PCP Student in an Organized Health Care Education/Training Program; Referring Provider Internal Medicine Rheumatology; Visit Provider Internal Medicine Rheumatology
DX: M06.4 Inflammatory polyarthropathy (principal); Z79.899 Other long term (current) drug therapy
CPT/HCPCS: 36415; 80053; 85025